=== PATIENT | male | born 1955 | race Two or more races ===

== ENCOUNTER 2024-06-14 20:29 | Inpatient (IN) | payer OTHER ==
[~2024-06-14] VITALS: Ht 170.2 cm; Wt 112.3 kg
--- NOTE | 2024-06-14 21:00 | ED.PDOC ---
History of Present Illness HPI Comments 68-year-old male complains of cough for the last 4 days and then started feeling some tightness in his chest and shortness of breath for the last 8 hours or so after he bought a new trailer today. Chief Complaint: Chest Pain Time Seen by MD: 20:35 Allergies: Coded Allergies: NO KNOWN ALLERGIES (Unverified , 06/14/24) Information Source: Patient, Relative Severity: Moderate Timing: Days Past Medical History PAST MEDICAL HISTORY: Asthma, COPD, GERD, HTN Past Medical History (Other): BPH, obesity Surgical History: Denies all surgeries Surgical History (Other): bilateral knee surgeries Family History Family History: Unknown Social History Smoker: Non-Smoker Alcohol: Denies ETOH Use Drugs: Denies Drug Use Lives In: Home Constitutional: reports: fatigue, malaise Respiratory: reports: cough, SOB at rest, SOB with excertion, wheezing Cardiovascular: reports: chest pain All Other Systems: Reviewed and Negative Physical Exam General Appearance: Moderate Distress HEENT: Normal ENT Inspection, Pharynx Normal, TMs Normal Neck: Full Range of Motion, Non-Tender, Normal, Normal Inspection Respiratory: No Accessory Muscle Use, Respiratory Distress, Wheezing Cardiovascular: No Edema, No JVD, No Murmur, No Gallop, Normal Peripheral Pulses, Regular Rate/Rhythm Breast Exam: Deferred Gastrointestinal: No Organomegaly, Non Tender, No Pulsatile Mass, Normal Bowel Sounds, Soft Genitalia: Deferred Pelvic: Deferred Rectal: Deferred Extremities: No calf tenderness, Normal capillary refill, Normal inspection, Normal range of motion, Non-tender, No pedal edema Musculoskeletal : Apperance: Normal Neurologic: Alert, retail pharmacy manager II-XII nml as Tested, No Motor Deficits, Normal Affect, Normal Mood, No Sensory Deficits Cerebellar Function: Normal Reflexes: Normal Skin: Dry, Normal Color, Warm Lymphatic: No Adenopathy Was a procedure done? Was a procedure done?: No EKG EKG #1: Pulse Rate (adult): 98 [place]: Normal Cardiac Rhythm: NSR Block: None Hypertrophy: None ST: Normal EKG #2: Pulse Rate (adult): 93 [place]: Normal Cardiac Rhythm: NSR Block: None Hypertrophy: None ST: Normal Differential Dx Considerations may include: Differential diagnosis includes but is not limited to: asthma, pneumonia, c ongestive heart failure, pleural effusion, empyema, pulmonary embolus, and others X-Ray, Labs, Meds, VS Vital Signs Date Time Temp Pulse Resp B/P (MAP) Pulse Ox O2 Delivery O2 Flow Rate FiO2 06/14/24 21:58 93 06/14/24 21:29 93 06/14/24 21:05 18 94 Nasal Cannula* 6 44 06/14/24 20:34 98 06/14/24 20:30 98.8 105 24 158/98 (118) 91 Lab Test 06/14/24 21:37 06/14/24 21:06 06/14/24 20:45 Range/Units Lactic Acid Level 1.4 0.4-2.0 mmol/L Troponin I High Sensitivity < 3 L < 3 L </=54 ng/L Blood Gas Specimen Type Venous Blood Gas Sample Site Vbg - n/a Blood Gas Patient Temperature 37.0 Arterial Blood Date Drawn [id number] Cam Test N/a Venous Blood pH 7.343 7.320-7.430 Venous Blood pCO2 at Patient Temp 58.6 *H 38.0-54.0 mmHg Venous Blood pO2 at Patient Temp 65.5 H 23.0-48.0 mmHg Venous Blood HCO3 31.1 H 22.0-29.0 mmol/L Venous Blood Base Excess 3.7 H -2.0-3.0 mmol/L Blood Gas Liter Flow 6.00 Blood Gas Modality Nasal cannula Blood Gas Spontaneous Rate 18 FiO2 % 44.0 Blood Gas Critical Value Read Back Yes Blood Gas Notified Whom Dr. nico kimble Blood Gas Notified Time [id number] Blood Gas Notified By William alston director of safety and security White Blood Count 9.7 4.4-10.8 10^3/uL Red Blood Count 7.79 H 4.5-5.90 10^6/uL Hemoglobin 18.7 H 13.5-17.5 g/dL Hematocrit 60.1 H 41.0-53.0 % Mean Corpuscular Volume 77.1 L 80.0-100.0 fL Mean Corpuscular Hemoglobin 24.0 L 28.0-32.0 pg Mean Corpuscular Hemoglobin Concent 31.1 L 32.0-36.0 g/dL Red Cell Distribution Width 21.9 H 11.8-14.3 % Platelet Count 205 140-450 10^3/uL Mean Platelet Volume 7.9 6.9-10.8 fL Neutrophils (%) (Auto) 67.4 37.0-80.0 % Lymphocytes (%) (Auto) 20.1 10.0-50.0 % Monocytes (%) (Auto) 11.0 0.0-12.0 % Eosinophils (%) (Auto) 1.1 0.0-7.0 % Basophils (%) (Auto) 0.4 0.0-2.0 % Neutrophils # (Auto) 6.6 1.6-8.6 10 ^3/uL Lymphocytes # (Auto) 2.0 0.4-5.4 10 ^3/uL Monocytes # (Auto) 1.1 0-1.3 10 ^3/uL Eosinophils # (Auto) 0.1 0-0.8 10 ^3/uL Basophils # (Auto) 0 0-0.2 10 ^3/uL Nucleated Red Blood Cells 2.5 % Prothrombin Time 11.8 9.3-11.8 sec Prothrombin Time INR 1.13 0.9-1.15 Activated Partial Thromboplast Time 29.4 24.5-34.5 SEC Sodium Level 138 136-145 mmol/L Potassium Level 3.9 3.5-5.1 mmol/L Chloride Level 100 98-107 mmol/L Carbon Dioxide Level 29 20-31 mmol/L Anion Gap 9 5-15 Blood Urea Nitrogen 15 9-23 mg/dL Creatinine 0.89 0.700-1.30 mg/dL Glomerular Filtration Rate Calc 93 >90 mL/min BUN/Creatinine Ratio 16.9 10.0-20.0 Serum Glucose 141 H 74-106 mg/dL Calcium Level 9.6 8.7-10.4 mg/dL Total Bilirubin 0.9 0.2-1.0 mg/dL Aspartate Amino Transferase (AST) 23 13-40 U/L Alanine Aminotransferase (ALT) 25 7-40 U/L Alkaline Phosphatase 46 46-116 U/L Total Protein 7.2 5.7-8.2 g/dL Albumin 4.6 3.2-4.8 g/dL Influenza Type A Antigen Negative Negative Influenza Type B Antigen Negative Negative SARS-CoV-2 Antigen (Rapid) Negative NEGATIVE Current Medications Medications (Trade) Dose Ordered Sig/Ting Route Start Time Stop Time Status Last Admin Albuterol (Ventolin Medneb) 5 mg ONCE ONCE NEB 2/24/25 20:45 06/14/24 20:46 DC 06/14/24 21:05 Ipratropium Juda (Atrovent Medneb) 0.5 mg ONCE ONCE NEB 06/14/24 20:45 06/14/24 20:46 DC 06/14/24 21:05 Time of 1ST Reevaluation: 21:00 Reevaluation 1ST: Unchanged Time of 2ND Reevaluation: 23:00 Reevaluation 2ND: Unchanged Patient Education/Counseling: Diagnosis, Treatment Family Education/Counseling: Diagnosis, Treatment Departure 1 Departure Time of Disposition: 23:01 Impression: Primary Impression: Respiratory failure with hypoxia and hypercapnia Additional Impressions: COPD with acute exacerbation CHF (congestive heart failure) Intermediate coronary syndrome Disposition: ADMITTED INPATIENT Admit to: [facility] Condition: Guarded Discharged With: Self Comments Chest Pain and Shortness of Breath Chief Complaint: Chest tightness and shortness of breath History of Present Illness: 68-year-old male with known history of CHF and COPD presented to the ED with chest tightness and shortness of breath that began today around noon. Patient was found to be hypoxic with oxygen saturation of 89% on room air, requiring supplemental oxygen via nasal cannula for stabilization. Initial workup revealed evidence of pulmonary edema on chest imaging, with preserved cardiac enzymes but evidence of respiratory failure with hypercapnia on venous blood gas. Review of Systems: Respiratory: Positive for shortness of breath and chest tightness Constitutional: No fever All other systems: Deferred or negative Medications: Current outpatient medications not fully detailed in store lead ED medications administered: - Aspirin - Furosemide (Lasix) - Bronchodilator nebulizer treatment - Prednisone Allergies: No known allergies documented Past Medical History: 1. Chronic Heart Failure (CHF) 2. Chronic Obstructive Pulmonary Disease (COPD) Lab Results: 1. Troponin: Normal (< 0.03) 2. Lactate: 1.4 (normal) 3. Venous Blood Gas: PCO2 58.6 (elevated) 4. COVID-19 test: Negative 5. Influenza test: Negative Imaging and Other Relevant Results: Chest X-ray: Findings consistent with CHF and pulmonary edema Medical Decision Making: Summary Statement: 68-year-old male with history of CHF and COPD presenting with acute respiratory symptoms and found to have respiratory failure with both hypoxia and hypercapnia, along with evidence of CHF exacerbation. Problem List: 1. Acute respiratory failure with hypoxia and hypercapnia 2. COPD exacerbation 3. CHF exacerbation 4. Intermediate coronary syndrome Differential Diagnosis: 1. Acute CHF exacerbation 2. COPD exacerbation 3. Acute coronary syndrome 4. Pneumonia 5. COVID-19 (ruled out) 6. Influenza (ruled out) ED Course: Patient received acute interventions including supplemental oxygen, diuresis with Lasix, bronchodilator therapy, and steroids with partial improvement. After shared decision-making discussion with patient and family, admission was arranged. Assessment and Plan: 1. Acute Respiratory Failure with Hypoxia and Hypercapnia: - Admit to hospital for continued management - Continue supplemental oxygen therapy - Serial blood gas monitoring 2. COPD Exacerbation: - Continue bronchodilator treatments - Continue systemic steroids - Optimize respiratory medications 3. CHF Exacerbation: - Continue diuresis with Lasix - Monitor fluid status - Daily weights 4. Intermediate Coronary Syndrome: - Initiated aspirin - Cardiac monitoring - Serial troponins Billing Information: ICD-10: J96.21 - Acute respiratory failure with hypoxia ICD-10: J44.1 - COPD with acute exacerbation ICD-10: I50.9 - Heart failure, unspecified ICD-10: I20.0 - Unstable angina Critical Care Note Critical Care Time?: Yes (35 min-critical care time only) Critical care comment: Total critical care time: Approximately 36 minutes Due to a high probability of clinically significant, life threatening deterioration, the patient required my highest level of preparedness to intervene emergently and I personally spent this critical care time directly and personally managing the patient. This critical care time included obtaining a history; examining the patient; pulse oximetry; ordering and review of studies; arranging urgent treatment with development of a management plan; evaluation of patient's response to treatment; frequent reassessment; and, discussions with other providers. This critical care time was performed to assess and manage the high probability of imminent, life-threatening deterioration that could result in multi-organ failure. It was exclusive of separately billable procedures and treating other patients. Stability Stability form required: No Heart Score Heart Score: Heart Score Response (Comments) Value History Moderate Suspicious 1 EKG Normal 0 Age >65 2 Risk Factors >3 or Hx ASHD 2 Troponin Normal limit 0 Total 5 I personally scribed for PATTI KIMBLE MD ([email or web address]) on 06/14/24 at 21:58. Electronically submitted by Nick Jimenez ([email or web address]). PATTI KIMBLE MD Jun 14, 2024 21:00
[2024-06-14] MEDS: ALBUTEROL SULF 2.5 MG/0.5ML(0.5%) NEB SOLN NEB ONE (21:05)
[2024-06-14] MEDS: IPRATROPIUM BROM 0.5 MG/2.5ML INH SOL NEB ONE (21:05)
[2024-06-14 21:08] LABS: Eosinophils # (auto) 0.1 10 ^3/uL (0-0.8); Hemoglobin 18.7 g/dL (13.5-17.5); Monocytes # (auto) 1.1 10 ^3/uL (0-1.3)
[2024-06-14 21:12] LABS: Basophils # (auto) 0 10 ^3/uL (0-0.2); Basophils % (auto) 0.4 % (0.0-2.0); Eosinophils % (auto) 1.1 % (0.0-7.0); Lymphocytes % (auto) 20.1 % (10.0-50.0); Mean Corpuscular Hgb Conc. 31.1 g/dL (32.0-36.0); Mean Corpuscular Volume 77.1 fL (80.0-100.0); Neutrophils # (auto) 6.6 10 ^3/uL (1.6-8.6); Neutrophils % (auto) 67.4 % (37.0-80.0); Nucleated Red Blood Cells % 2.5 %; Platelet Count (auto) 205 10^3/uL (140-450); Red Blood Cells 7.79 10^6/uL (4.5-5.90); White Blood Cell 9.7 10^3/uL (4.4-10.8)
[2024-06-14 21:13] LABS: Hematocrit 60.1 % (41.0-53.0); Red Cell Distribution Width 21.9 % (11.8-14.3)
[2024-06-14 21:21] LABS: Rapid Influenza A Negative (Negative); Rapid Influenza B Negative (Negative)
[2024-06-14 21:22] LABS: COVID19 ANTIGEN SOFIA FIA NEGATIVE (NEGATIVE)
[2024-06-14 21:23] LABS: Alanine Aminotransferase 25 U/L (7-40); Albumin 4.6 g/dL (3.2-4.8); Alkaline Phosphatase 46 U/L (46-116); Anion Gap 9 (5-15); Aspartate Aminotransferase 23 U/L (13-40); BUN/Creatinine Ratio 16.9 (10.0-20.0); Bilirubin, Total 0.9 mg/dL (0.2-1.0); Blood Urea Nitrogen 15 mg/dL (9-23); Calcium 9.6 mg/dL (8.7-10.4); Carbon Dioxide 29 mmol/L (20-31); Chloride 100 mmol/L (98-107); Potassium 3.9 mmol/L (3.5-5.1); Sodium 138 mmol/L (136-145); Total Protein 7.2 g/dL (5.7-8.2)
[2024-06-14 21:24] LABS: Glucose 141 mg/dL (74-106)
[2024-06-14 21:30] LABS: INR 1.13 (0.9-1.15); Partial Thromboplastin Time 29.4 SEC (24.5-34.5); Prothrombin Time 11.8 sec (9.3-11.8)
--- NOTE | 2024-06-14 21:43 | DVH ---
CHEST RADIOGRAPH Indication: chest pain Technique: Single frontal view of the chest was obtained COMPARISON: None FINDINGS: Lines and Tubes: None Lungs: Mild interstitial pulmonary edema. Pleura: No effusion. No pneumothorax. Cardiomediastinal contours: Cardiomegaly Bones: Unremarkable IMPRESSION: 1. Mild interstitial pulmonary edema in the setting of cardiomegaly.
[2024-06-14] MEDS: ASPirin-EC 81 mg tab PO ONE (23:00)
[2024-06-15] VITALS (9 sets, daily range): BP systolic 101–126; BP diastolic 66–87; PULSE 84–106; RESP 18–92; TEMP 97.6–98.8; O2SAT 92–96
[2024-06-15] MEDS: predniSONE 20 MG TAB PO ONE (00:21)
[2024-06-15] MEDS: FUROSEMIDE 40 MG/4 ML VIAL IV ONE ×2 (00:32→10:30)
[2024-06-15] MEDS ORDERED: ONDANSETRON HCL 4 MG/2 ML VIAL IV PRN (01:00)
[2024-06-15] MEDS ORDERED: ACETAMINOPHEN 325 MG TAB PO PRN (01:00)
[2024-06-15] MEDS ORDERED: MORPHINE SULFATE INJ 2 MG/ml SYRG IV PRN (01:00)
[2024-06-15] MEDS ORDERED: NITROGLYCERIN 0.4 MG SL TAB SL PRN (01:00)
--- NOTE | 2024-06-15 04:03 | DVHHP2 ---
History of Present Illness Reason for Visit: Shortness for breath History of Present Illness 68-year-old male presents for evaluation of shortness for breath. Patient presents with a four day history of shortness for breath. He describes having left-sided chest pressure that is nonradiating with associated shortness for breath. He reports orthopnea. He also associates mild abdominal distention. Past Medical History Hypertension and BPH Past Surgical History Bilateral knee surgery Family History Noncontributory Smoke: No ALCOHOL: none Drugs: None Lives: with Family Review of Systems Review of Systems Review of systems are currently negative otherwise addressed in HPI. Allergies: Coded Allergies: NO KNOWN ALLERGIES (Unverified , 06/14/24) Medications Current Medications Medications Dose Ordered Sig/Ting Route Start Time Stop Time Status Last Admin Dose Admin Albuterol 2.5 mg Q6HPRN PRN NEB 06/15/24 01:00 Furosemide 20 mg BIDD IV 06/15/24 06:00 Aspirin 81 mg DAILY PO 06/15/24 10:00 Lisinopril 10 mg DAILY PO 06/15/24 10:00 Ondansetron HCl 4 mg Q4HP PRN IV 06/15/24 01:00 Enoxaparin Sodium 40 mg DAILY SC 06/15/24 10:00 Acetaminophen 650 mg Q6HP PRN PO 06/15/24 01:00 Nitroglycerin 0.4 mg Q5MINP PRN SL 06/15/24 01:00 Morphine Sulfate 2 mg Q30M PRN IV 06/15/24 01:00 Atorvastatin Calcium 10 mg HS PO 06/15/24 22:00 Exam Vital Signs Vital Signs Date Time Temp Pulse Resp B/P (MAP) Pulse Ox O2 Delivery O2 Flow Rate FiO2 06/15/24 02:00 94 20 134/86 (102) 90 06/15/24 01:20 98.0 6.0 44 98.0 06/15/24 00:05 Nasal Cannula* Exam Gen: 68-year-old male in mild distress, obese Skin: Warm, dry, normal color and texture, no rash. HEENT: Normocephalic atraumatic, mucous membranes moist and pink. Neck: Cervical and supraclavicular nodes normal without enlargement, trachea is midline, thyroid gland is normal without masses. Pulmonary: Clear to auscultation and percussion bilaterally. Cardiac: Regular rate and rhythm. No murmur Abdomen: Soft, nontender, nondistended, bowel sounds present all 4 quadrants, no guarding, no rigidity, no organomegaly. Extremities: No cyanosis, clubbing, no edema Neuro: Cranial nerves II through XII grossly intact, normal affect and speech, no focal motor deficits. Labs/Xrays ORDERING PHYSICIAN: PATTI KIMBLE MD PROCEDURE(s): CXRP - CHEST PORTABLE REASON: chest pain ORDER NUMBER(s): [id number], ACCESSION NUMBER(s): [id number] CHEST RADIOGRAPH Indication: chest pain Technique: Single frontal view of the chest was obtained COMPARISON: None FINDINGS: Lines and Tubes: None Lungs: Mild interstitial pulmonary edema. Pleura: No effusion. No pneumothorax. Cardiomediastinal contours: Cardiomegaly Bones: Unremarkable IMPRESSION: 1. Mild interstitial pulmonary edema in the setting of cardiomegaly. Labs Test 06/15/24 01:11 06/14/24 21:37 06/14/24 21:06 06/14/24 20:45 Range/Units D-Dimer, Quantitative 0.52 H 0.0-0.49 mg/L FEU Lactic Acid Level 1.4 0.4-2.0 mmol/L Troponin I High Sensitivity < 3 L </=54 ng/L Blood Gas Specimen Type Venous Blood Gas Sample Site Vbg - n/a Blood Gas Patient Temperature 37.0 Arterial Blood Date Drawn [id number] Cam Test N/a Venous Blood pH 7.343 7.320-7.430 Venous Blood pCO2 at Patient Temp 58.6 *H 38.0-54.0 mmHg Venous Blood pO2 at Patient Temp 65.5 H 23.0-48.0 mmHg Venous Blood HCO3 31.1 H 22.0-29.0 mmol/L Venous Blood Base Excess 3.7 H -2.0-3.0 mmol/L Blood Gas Liter Flow 6.00 Blood Gas Modality Nasal cannula Blood Gas Spontaneous Rate 18 FiO2 % 44.0 Blood Gas Critical Value Read Back Yes Blood Gas Notified Whom Dr. nico kimble Blood Gas Notified Time [id number] Blood Gas Notified By William alston [facility] White Blood Count 9.7 4.4-10.8 10^3/uL Red Blood Count 7.79 H 4.5-5.90 10^6/uL Hemoglobin 18.7 H 13.5-17.5 g/dL Hematocrit 60.1 H 41.0-53.0 % Mean Corpuscular Volume 77.1 L 80.0-100.0 fL Mean Corpuscular Hemoglobin 24.0 L 28.0-32.0 pg Mean Corpuscular Hemoglobin Concent 31.1 L 32.0-36.0 g/dL Red Cell Distribution Width 21.9 H 11.8-14.3 % Platelet Count 205 140-450 10^3/uL Mean Platelet Volume 7.9 6.9-10.8 fL Neutrophils (%) (Auto) 67.4 37.0-80.0 % Lymphocytes (%) (Auto) 20.1 10.0-50.0 % Monocytes (%) (Auto) 11.0 0.0-12.0 % Eosinophils (%) (Auto) 1.1 0.0-7.0 % Basophils (%) (Auto) 0.4 0.0-2.0 % Neutrophils # (Auto) 6.6 1.6-8.6 10 ^3/uL Lymphocytes # (Auto) 2.0 0.4-5.4 10 ^3/uL Monocytes # (Auto) 1.1 0-1.3 10 ^3/uL Eosinophils # (Auto) 0.1 0-0.8 10 ^3/uL Basophils # (Auto) 0 0-0.2 10 ^3/uL Nucleated Red Blood Cells 2.5 % Prothrombin Time 11.8 9.3-11.8 sec Prothrombin Time INR 1.13 0.9-1.15 Activated Partial Thromboplast Time 29.4 24.5-34.5 SEC Sodium Level 138 136-145 mmol/L Potassium Level 3.9 3.5-5.1 mmol/L Chloride Level 100 98-107 mmol/L Carbon Dioxide Level 29 20-31 mmol/L Anion Gap 9 5-15 Blood Urea Nitrogen 15 9-23 mg/dL Creatinine 0.89 0.700-1.30 mg/dL Glomerular Filtration Rate Calc 93 >90 mL/min BUN/Creatinine Ratio 16.9 10.0-20.0 Serum Glucose 141 H 74-106 mg/dL Calcium Level 9.6 8.7-10.4 mg/dL Total Bilirubin 0.9 0.2-1.0 mg/dL Aspartate Amino Transferase (AST) 23 13-40 U/L Alanine Aminotransferase (ALT) 25 7-40 U/L Alkaline Phosphatase 46 46-116 U/L B-Type Natriuretic Peptide 54.63 0-100 pg/mL Total Protein 7.2 5.7-8.2 g/dL Albumin 4.6 3.2-4.8 g/dL Influenza Type A Antigen Negative Negative Influenza Type B Antigen Negative Negative SARS-CoV-2 Antigen (Rapid) Negative NEGATIVE Assessment/Plan Assessment/Plan Assessment Acute respiratory distress Possible acute diastolic congestive heart failure Hypertension Plan Admit the patient to telemetry to the hospitalist Cardiology consultation Resume home medications Continue treatment per orders. Plan discussed with: Patient My Orders Orders - JAIME LEVI Procedure Category Date Status Time Albuterol Medneb PHA 06/15/24 In Process (Ventolin Medneb) 01:00 Furosemide Injection PHA 06/15/24 In Process (Lasix Injection) 06:00 Aspirin Tablet PHA 06/15/24 In Process 10:00 * Cardiology Consult CONS 06/15/24 Transmitted 00:53 Lisinopril Tablet PHA 06/15/24 In Process (Zestril Tablet) 10:00 Basic Metabolic Panel LAB 06/16/24 Verified 04:00 Admit ADMIT 06/15/24 Transmitted 00:53 Ondansetron Hcl PHA 06/15/24 In Process (Zofran) 01:00 Enoxaparin Sodium PHA 06/15/24 In Process (Lovenox) 10:00 Complete Blood Count LAB 06/16/24 Verified 04:00 Cardiac DIET 06/15/24 Transmitted Diet-2gna,Lofat,Lochol Breakfast Echo 2d Mode Cardiac US 06/15/24 Logged DOP 00:53 Condition: Stable CARISSA 06/15/24 In Process 00:53 Acetaminophen Tablet PHA 06/15/24 In Process (Tylenol Tablet) 01:00 Bedrest With Bathroom CARISSA 06/15/24 In Process Privileg 00:53 Nitroglycerin PHA 06/15/24 In Process Sublingual (Ntrostat 01:00 Morphine Sulfate PHA 06/15/24 In Process Injection 01:00 Stat Ekg For Chest CARISSA 06/15/24 In Process Pain 00:53 Notify Of Changes CARISSA 06/15/24 In Process From Base 00:53 [employer] Teacher For [facility] 06/15/24 In Process 24 Hours 00:53 Emergency Dysrhythmia [facility] 06/15/24 In Process Protocol 00:53 Rhythm Strips Once [facility] 06/15/24 In Process Every Shift 00:53 Oxygen By Nasal RT 06/15/24 Transmitted Cannula 00:53 Atorvastatin (Lipitor) PHA 06/15/24 In Process 22:00 Lipid Panel LAB 06/15/24 Verified 03:57 Thyroid Stimulating LAB 06/15/24 Verified Hormone 03:57 Hemoglobin A1c LAB 06/15/24 Verified 03:57 Date of Service: Jun 15, 2024 Billing Provider: JAIME LEVI Common Visit Codes: [id number] INP/OBS CARE (HIGH) JAIME LEVI Jun 15, 2024 04:03
[2024-06-15 05:55] LABS: LDL Cholesterol 60 mg/dL (< 100)
[2024-06-15 05:56] LABS: % Iron Saturation 8.2 % (20-55); Cholesterol 111 mg/dL (< 200)
--- NOTE | 2024-06-15 06:44 | ECG ---
[facility] Test Date: 2024-06-14 Test Time: 21:29:03 Pat Name: MICHELLE RICHARDSON Department: ED Room: 0297T Gender: M Geophysical E Logger: [place] : 1955 Requested By: PATTI KIMBLE Order Number: [id number] Reading MD: Ruben Ferrera Measurements Intervals [place] Rate: 93 P: 48 RI: 159 QRS: 254 QRSD: 83 T: 35 QT: 334 QTc: 416 Interpretive Statements Sinus rhythm Anterolateral infarct, old Baseline wander in lead(s) II,V2 Electronically Signed On 06-19-2024 17:24:48 PST by Ruben Ferrera Please click the below link to view image of tracing.
[2024-06-15 06:47] LABS: HDL Cholesterol 32 mg/dL (40-59); Triglycerides 110 mg/dL (< 150)
[2024-06-15] MEDS: FUROSEMIDE 20 MG/2 ML VIAL IV SCH (07:03)
--- NOTE | 2024-06-15 09:15 | ECG ---
[facility] [place] Test Date: 2024-06-14 Test Time: 20:34:05 Pat Name: MICHELLE RICHARDSON Department: ed Room: 0297T Gender: M Pad Machine Feeder: nanda : 1955 Requested By: PATTI KIMBLE Order Number: [id number] Reading MD: Ruben Ferrera Measurements Intervals [place] Rate: 98 P: 45 HI: 155 QRS: 256 QRSD: 90 T: 27 QT: 330 QTc: 422 Interpretive Statements Sinus rhythm Anterolateral infarct, old Baseline wander in lead(s) II,III,aVL,aVF,V2,V3,V4,V6 Electronically Signed On 06-19-2024 17:23:13 PST by Ruben Ferrera Please click the below link to view image of tracing.
[2024-06-15 09:16] LABS: Basophils # (auto) 0 10 ^3/uL (0-0.2); Basophils % (auto) 0.3 % (0.0-2.0); Eosinophils # (auto) 0 10 ^3/uL (0-0.8); Eosinophils % (auto) 0.2 % (0.0-7.0); Lymphocytes # (auto) 0.6 10 ^3/uL (0.4-5.4); Lymphocytes % (auto) 7.5 % (10.0-50.0); Mean Corpuscular Hemoglobin 23.1 pg (28.0-32.0); Mean Corpuscular Hgb Conc. 29.7 g/dL (32.0-36.0); Mean Corpuscular Volume 77.8 fL (80.0-100.0); Monocytes # (auto) 0.2 10 ^3/uL (0-1.3); Monocytes % (auto) 2.3 % (0.0-12.0); Neutrophils % (auto) 89.7 % (37.0-80.0); Nucleated Red Blood Cells % 2.3 %; Platelet Count (auto) 224 10^3/uL (140-450); White Blood Cell 7.8 10^3/uL (4.4-10.8)
[2024-06-15 09:20] LABS: Hematocrit 63.8 % (41.0-53.0); Red Cell Distribution Width 22.2 % (11.8-14.3)
[2024-06-15] MEDS: ENOXAPARIN SOD 40 MG/0.4 ML SYRINGE SC SCH (10:22)
[2024-06-15] MEDS: ASPirin 81 mg TAB PO SCH (10:22)
[2024-06-15] MEDS: LISINOPRIL 5 MG TAB PO SCH (10:22)
[2024-06-15] MEDS ORDERED: IOHEXOL 300 MG/ML 100ML BOTTLE IJ ONE (10:35)
[2024-06-15] MEDS ORDERED: IOHEXOL 350 MG/ML 100ML IJ ONE (10:39)
--- NOTE | 2024-06-15 10:47 | DVHCONRES ---
Date Seen: Jun 15, 2024 Resident Creating Document: BENNIE HUGEHS RESIDENT Referring Physician OUMAR Butler Reason for Consultation CHF History of Present Illness This is a 68-year-old male who comes into the ED with chief complain of shortness of breath. He has a past medical history relevant for hypertension and BPH. Past surgical history relevant for bilateral knee surgery. Social history: Denies smoking, alcohol or drug abuse. Home medications: Patient stated that he does not remember some of his medications but stated he takes aspirin, and has been injecting testosterone every month for the last eight months. Patient stated that for the last four days he has been having worsening shortness of breath, he stated that it was associated with chest pain, midsternal, pressure-like, moderate, waxing and waning, release by standing up and walking, worsened by lying flat. He stated that the chest pain is nonradiating, and states having orthopnea. She currently denies any dizziness, lightheadedness, nausea, vomiting, abdominal pain. On arrival to the ED, patient's heart rate was 105, he was tachypneic at 24, blood pressure was elevated at 150 8/98, he was saturating at 91%, he was placed on nasal cannula 6 L. Blood work revealed erythrocytosis, normal troponins, BNP 54, TSH within normal limits, hemoglobin A1c 5.9%, COVID and flu were negative. Chest x-ray show [id number] vascular congestion EKG revealed a rate of 93, sinus rhythm, extreme axis, no ST changes, Q-waves on anterolateral aspect On my assessment, patient states feeling better than on admission, he currently denied any significant shortness of breath or chest pain. He remained on oxygen requirement. Family History: Patient reports no known family medical history. Allergies: Coded Allergies: NO KNOWN ALLERGIES (Unverified , 06/14/24) Home Meds Unable to Obtain Active Prescriptions or Reported Meds Current Medications Current Medications Medications (Trade) Dose Ordered Sig/Ting Route PRN Reason Start Time Stop Time Status Last Admin Albuterol (Ventolin Medneb) 2.5 mg Q6HPRN PRN NEB SHORTNESS OF BREATH 06/15/24 01:00 Furosemide (Lasix Injection) 20 mg BIDD IV 06/15/24 06:00 06/15/24 07:03 Aspirin 81 mg DAILY PO 06/15/24 10:00 06/15/24 10:22 Lisinopril (Zestril Tablet) 10 mg DAILY PO 06/15/24 10:00 06/15/24 10:22 Ondansetron HCl (Zofran) 4 mg Q4HP PRN IV NAUSEA / VOMITING 06/15/24 01:00 Enoxaparin Sodium (Lovenox) 40 mg DAILY SC 06/15/24 10:00 06/15/24 10:22 Acetaminophen (Tylenol Tablet) 650 mg Q6HP PRN PO PAIN SCALE 1-3 OR TEMP>100.4 06/15/24 01:00 Nitroglycerin (Ntrostat Sublingual) 0.4 mg Q5MINP PRN SL FOR CHEST PAIN 06/15/24 01:00 Morphine Sulfate 2 mg Q30M PRN IV FOR CHEST PAIN 06/15/24 01:00 Atorvastatin Calcium (Lipitor) 10 mg HS PO 06/15/24 22:00 Review of Systems Constitutional: Patient denies fevers, chills, sweats and weight changes. Eyes: Patient denies any visual symptoms. Ears, Nose, and Throat: No difficulties with hearing. No symptoms of rhinitis or sore throat. Cardiovascular: Chest pain, orthopnea Respiratory: Shortness of breath, dry cough GI: No nausea, vomiting, diarrhea, constipation, abdominal pain, hematochezia or melena. : No urinary hesitancy or dribbling. No nocturia or urinary frequency. No abnormal urethral discharge. Musculoskeletal: No myalgias, arthralgias or edema. Neurologic: No chronic headaches, no seizures. Patient denies numbness, tingling or weakness. Psychiatric: Patient denies problems with mood disturbance. No problems with anxiety. Endocrine: No excessive urination or excessive thirst. Dermatologic: Patient denies any rashes or skin changes. Vital Signs Vital Signs Date Time Temp Pulse Resp B/P (MAP) Pulse Ox O2 Delivery O2 Flow Rate FiO2 06/15/24 10:22 117/77 06/15/24 04:56 84 17 9 06/15/24 01:20 98.0 6.0 44 98.0 06/15/24 00:05 Nasal Cannula* Physical Exam General: Awake, alert, comfortable appearing, in no acute distress. HEENT: Head is normocephalic and atraumatic. Pupils are equal, round, and reactive to light. Extraocular muscles are intact. No nasal discharge. No facial trauma. Intraoral exam shows moist mucous membranes with no tonsillar enlargement or exudate. Neck: Supple with no cervical lymphadenopathy No meningismus. No goiter. Heart: Regular rate without murmur, rub, or gallop. Lungs: Ckad-xi-mlzaxfnd bilateral diffuse crackles Abdomen: No external sign of injury. Bowel sounds are present. Abdomen is soft, nontender. No rebound, no guarding, no rigidity. There are no palpable masses. There is no flank pain on exam. Extremities: Strong peripheral pulses. There is no clubbing, no cyanosis, and no edema. Skin: No rash. Neurologic: Cranial nerves II-XII intact without motor, sensory, or cerebellar deficit, no asterixis. Labs/Diagnostic Data Labs Test 06/15/24 04:28 06/15/24 01:11 06/14/24 21:37 06/14/24 21:06 Range/Units White Blood Count 7.8 4.4-10.8 10^3/uL Red Blood Count 8.20 H 4.5-5.90 10^6/uL Hemoglobin 19.0 H 13.5-17.5 g/dL Hematocrit 63.8 H 41.0-53.0 % Mean Corpuscular Volume 77.8 L 80.0-100.0 fL Mean Corpuscular Hemoglobin 23.1 L 28.0-32.0 pg Mean Corpuscular Hemoglobin Concent 29.7 L 32.0-36.0 g/dL Red Cell Distribution Width 22.2 H 11.8-14.3 % Platelet Count 224 140-450 10^3/uL Mean Platelet Volume 8.6 6.9-10.8 fL Neutrophils (%) (Auto) 89.7 H 37.0-80.0 % Lymphocytes (%) (Auto) 7.5 L 10.0-50.0 % Monocytes (%) (Auto) 2.3 0.0-12.0 % Eosinophils (%) (Auto) 0.2 0.0-7.0 % Basophils (%) (Auto) 0.3 0.0-2.0 % Neutrophils # (Auto) 7.0 1.6-8.6 10 ^3/uL Lymphocytes # (Auto) 0.6 0.4-5.4 10 ^3/uL Monocytes # (Auto) 0.2 0-1.3 10 ^3/uL Eosinophils # (Auto) 0 0-0.8 10 ^3/uL Basophils # (Auto) 0 0-0.2 10 ^3/uL Nucleated Red Blood Cells 2.3 % Hemoglobin A1c 5.9 H <5.7 % A1C Iron Level 32 L 65-175 ug/dL Total Iron Binding Capacity 391 250-425 ug/dL Percent Iron Saturation 8.2 L 20-55 % Triglycerides Level 110 < 150 mg/dL Cholesterol Level 111 < 200 mg/dL LDL Cholesterol 60 < 100 mg/dL HDL Cholesterol 32 L 40-59 mg/dL Thyroid Stimulating Hormone (TSH) 1.37 0.55-4.78 uIU/mL D-Dimer, Quantitative 0.52 H 0.0-0.49 mg/L FEU Lactic Acid Level 1.4 0.4-2.0 mmol/L Troponin I High Sensitivity < 3 L </=54 ng/L Blood Gas Specimen Type Venous Blood Gas Sample Site Vbg - n/a Blood Gas Patient Temperature 37.0 Arterial Blood Date Drawn [id number] Cam Test N/a Venous Blood pH 7.343 7.320-7.430 Venous Blood pCO2 at Patient Temp 58.6 *H 38.0-54.0 mmHg Venous Blood pO2 at Patient Temp 65.5 H 23.0-48.0 mmHg Venous Blood HCO3 31.1 H 22.0-29.0 mmol/L Venous Blood Base Excess 3.7 H -2.0-3.0 mmol/L Blood Gas Liter Flow 6.00 Blood Gas Modality Nasal cannula Blood Gas Spontaneous Rate 18 FiO2 % 44.0 Blood Gas Critical Value Read Back Yes Blood Gas Notified Whom Dr. nico perdue Blood Gas Notified Time [id number] Blood Gas Notified By [facility] Test 06/14/24 20:45 Range/Units Prothrombin Time 11.8 9.3-11.8 sec Prothrombin Time INR 1.13 0.9-1.15 Activated Partial Thromboplast Time 29.4 24.5-34.5 SEC Total Bilirubin 0.9 0.2-1.0 mg/dL Aspartate Amino Transferase (AST) 23 13-40 U/L Alanine Aminotransferase (ALT) 25 7-40 U/L Alkaline Phosphatase 46 46-116 U/L B-Type Natriuretic Peptide 54.63 0-100 pg/mL Total Protein 7.2 5.7-8.2 g/dL Albumin 4.6 3.2-4.8 g/dL Influenza Type A Antigen Negative Negative Influenza Type B Antigen Negative Negative SARS-CoV-2 Antigen (Rapid) Negative NEGATIVE Assessment Acute diastolic CHF, NYHA class 3 Pneumonia gram (+) vs gram (-) Acute hypoxic respiratory failure Hypertension BPH Secondary erythrocytosis likely testosterone induced Elevated D-dimer, rule out DVT and PE Mixed Dyslipidemia Prediabetes Obesity Plan/Recommendation Continue diuresing as tolerated Continue GDMT: Jardiance, SAMREEN inhibitor, hold beta-carline for now Maintain fluid restriction and strict I&Os Pending echocardiogram Maintain magnesium above 2 on potassium above [address] angio and lower extremity Doppler Continue chest pain protocol Continue telemetry Order CRP, ESR, PSA Antibiotics per primary team Counseled on stopping testosterone injection Case was discussed with Dr. Ferrera Plan discussed with: Patient BENNIE HUGHES RESIDENT Jun 15, 2024 10:47
--- NOTE | 2024-06-15 11:02 | DVH ---
BILATERAL LOWER EXTREMITY VENOUS DOPPLER CLINICAL HISTORY: elevated ddimer Technique: Duplex Doppler evaluation of the deep venous systems of both lower extremities from the co mmon femoral veins to the popliteal veins including color Doppler and spectral/pulsed waveform analys is was performed. COMPARISON: None FINDINGS: The right and left common femoral, superficial femoral, popliteal, posterior tibial veins and trifur cations appear patent with normal augmentation, phasicity, compressibility and color-flow. IMPRESSION: 1. There is no sonographic evidence for DVT in the lower extremities. HS:Y
[2024-06-15 11:25] LABS: Anion Gap 14 (5-15); Carbon Dioxide 25 mmol/L (20-31); Chloride 99 mmol/L (98-107); Potassium 4.9 mmol/L (3.5-5.1); Sodium 138 mmol/L (136-145)
[2024-06-15 11:26] LABS: Calcium 10.2 mg/dL (8.7-10.4)
--- NOTE | 2024-06-15 11:26 | DVH ---
CTA Chest with intravenous contrast INDICATION: elevated ddimer COMPARISON: None TECHNIQUE: Multidetector spiral CTA of the chest was performed of the chest with intravenous contrast . PULMONARY ANGIOGRAPHY PROTOCOL was utilized using a bolus-tracking technique centered on the main p ulmonary artery. Axial, coronal and sagittal multiplanar and MIP reformats were performed. CONTRAST: Type of contrast: Omni 350 Contrast injected: 100 ml Radiation dose : Chest: CTDI volume is 50 mGy. Dose-length product is 945 mGy*cm The dose indicators for CT are the volume computed Tomography (CT) dose Index (CTDIvol) and the dose Length product (DLP), and are measured in units of mGy and mGy-cm, respectively. These indicators are not patient dose, but values generated from the CT scanner acquisition factors. The report includes radiation exposure data for exposures received during this examination. Findings: Limited by motion. Pulmonary artery: No large central or large segmental pulmonary embolism. Lower neck: Normal thyroid. Lungs: Atelectasis/consolidation in the lung bases. Heart/Vascular Structures: Normal heart size. No pericardial effusion. Lymph Nodes: No adenopathy Pleura: No pleural effusion or significant pneumothorax. Musculoskeletal: No acute osseous abnormality. Soft tissues: Normal. Upper abdomen: Limited portions of the upper abdomen are unremarkable. IMPRESSION: 1. Limited by significant motion. No large central pulmonary embolus. 2. Atelectasis and consolidation in the lung bases. Superimposed infectious/ inflammatory process is not excluded. Clinical correlation and continued follow-up is recommended. HS:Y
[2024-06-15 11:27] LABS: Anisocytosis Slight; Hypochromia Moderate
[2024-06-15 11:28] LABS: Large Platelets FEW; Platelet Estimate Adequa
[2024-06-15 11:31] LABS: BUN/Creatinine Ratio 19.3 (10.0-20.0); Blood Urea Nitrogen 16 mg/dL (9-23); Magnesium 2.1 mg/dL (1.6-2.6)
[2024-06-15 11:36] LABS: Glucose 130 mg/dL (74-106)
[2024-06-15 12:07] LABS: Erythrocyte Sedimentation Rate 1 mm/hr (0-20)
[2024-06-15] MEDS ORDERED: AZITHROMYCIN 500MG/ 250ML 250 ML IV ONE (13:00)
--- NOTE | 2024-06-15 13:47 | DVHPN2 ---
Subjective 68-year-old male with a history of hypertension, BPH comes with chief complaint of 4 days of shortness of breaths and cough. He has been coughing up some dark sputum brown in color, He is currently on 10 L oxygen nasal cannula He is still having the cough and shortness of breaths Chest x-ray shows bilateral pulmonary edema or infiltrates at the bases No leg edema No history of CHF His BNP was normal Changes from previous H/P or p: Changes Objective Vitals Vital Signs Date Time Temp Pulse Resp B/P (MAP) Pulse Ox O2 Delivery O2 Flow Rate FiO2 06/15/24 10:22 117/77 06/15/24 09:00 98.3 102 18 94 98.3 06/15/24 01:20 6.0 44 06/15/24 00:05 Nasal Cannula* General Appearance: Alert, Oriented X3, Cooperative, moderate distress Lungs: Clear to auscultation, Normal air movement Cardiovascular: Regular rate, Normal S1, Normal S2 Abdomen: Normal bowel sounds, Soft, No tenderness Extremities: Other (Trace edema bilaterally) Medications Current Medications Medications Dose Ordered Sig/Ting Route Start Time Stop Time Status Last Admin Dose Admin Albuterol 2.5 mg Q6HPRN PRN NEB 06/15/24 01:00 Furosemide 20 mg BIDD IV 06/15/24 06:00 06/15/24 07:03 20 MG Aspirin 81 mg DAILY PO 06/15/24 10:00 06/15/24 10:22 81 MG Lisinopril 10 mg DAILY PO 06/15/24 10:00 06/15/24 10:22 10 MG Ondansetron HCl 4 mg Q4HP PRN IV 06/15/24 01:00 Enoxaparin Sodium 40 mg DAILY SC 06/15/24 10:00 06/15/24 10:22 40 MG Acetaminophen 650 mg Q6HP PRN PO 06/15/24 01:00 Nitroglycerin 0.4 mg Q5MINP PRN SL 06/15/24 01:00 Morphine Sulfate 2 mg Q30M PRN IV 06/15/24 01:00 Atorvastatin Calcium 10 mg HS PO 06/15/24 22:00 Empaglifozin 10 mg DAILY PO 06/16/24 10:00 UNV Piperacillin Sod/ Tazobactam Sod 100 ml @ 25 mls/hr Q8HR IV 06/15/24 14:00 UNV Azithromycin 250 ml @ 125 mls/hr DAILY IV 06/16/24 10:00 UNV Laboratory Results Laboratory Tests 06/15/24 04:28 Chemistry Test 06/14/24 20:45 06/15/24 04:28 Albumin 4.6 g/dL (3.2-4.8) Calcium Level 9.6 mg/dL (8.7-10.4) 10.2 mg/dL (8.7-10.4) Total Protein 7.2 g/dL (5.7-8.2) Magnesium Level 2.1 mg/dL (1.6-2.6) Coagulation Test 06/14/24 20:45 06/15/24 01:11 Prothrombin Time 11.8 sec (9.3-11.8) Prothrombin Time INR 1.13 (0.9-1.15) Activated Partial Thromboplast Time 29.4 SEC (24.5-34.5) D-Dimer, Quantitative 0.52 mg/L FEU (0.0-0.49) H Lipid panel Test 06/15/24 04:28 Cholesterol Level 111 mg/dL (< 200) HDL Cholesterol 32 mg/dL (40-59) L Triglycerides Level 110 mg/dL (< 150) Cardiac Markers Test 06/14/24 20:45 B-Type Natriuretic Peptide 54.63 pg/mL (0-100) LFT Test 06/14/24 20:45 Alanine Aminotransferase (ALT) 25 U/L (7-40) Alkaline Phosphatase 46 U/L (46-116) Aspartate Amino Transferase (AST) 23 U/L (13-40) Total Bilirubin 0.9 mg/dL (0.2-1.0) HgA1c, TSH Test 06/15/24 04:28 Hemoglobin A1c 5.9 % A1C (<5.7) H Thyroid Stimulating Hormone (TSH) 1.37 uIU/mL (0.55-4.78) Blood Gas Results Test 06/14/24 21:06 FiO2 % 44.0 Assessment/Plan Assessment/Plan Acute hypoxic respiratory failure Rule out heart failure Possible acute upper respiratory infection Hypertension BPH Iron deficiency COVID and flu negative Plan Continue IV antibiotics Oxygen as needed Med neb treatments as needed Aspirin Lipitor Lasix Echocardiogram is pending Cardiology consult Monitor closely The rest of the management will depend on the hospital course Plan discussed with: Patient Date of Service: Jun 15, 2024 Billing Provider: JACOB CONCEPCION MD Common Visit Codes: NOT BILLABLE JACOB CONCEPCION MD Jun 15, 2024 13:47
[2024-06-15 14:11] LABS: Urine Bacteria None Seen /hpf (None Seen)
[2024-06-15 14:37] LABS: Urine Blood Negative /uL (Negative); Urine Clarity Clear (Clear); Urine Color Yellow (Yellow); Urine Protein, UAD TRACE (Negative); Urine Squamous Epithelial Cell None Seen /hpf (<5); Urine Urobilinogen Normal (Negative); Urine WBC < 1 /HPF (0-3)
[2024-06-15 14:44] LABS: Urine Specific Gravity > 1.050 (1.001-1.035)
[2024-06-15 14:56] LABS: Amphetamine Screen, Urine Neg (NEGATIVE); Barbiturate Scree,Urine Neg (NEGATIVE); Benzodiazephine Screen, Urine Neg (NEGATIVE); Cannabinoid Screen, Urine Neg (NEGATIVE); Cocaine Screen, Urine Neg (NEGATIVE); Opiate Scree,Urine Neg (NEGATIVE); Phencyclidine Screen, Urine Neg (NEGATIVE)
[2024-06-15] MEDS: AZITHROMYCIN 500MG/ 250ML 250 ML IV ONE (17:01)
[2024-06-15] MEDS: PIPERACILLIN-TAZOB 3.375GM 100 ML IV ONE (19:13)
[2024-06-15] MEDS ORDERED: PIPERACILLIN-TAZOB 3.375GM 100 ML IV SCH (22:00)
[2024-06-15] MEDS: ATORVASTATIN 20 MG TAB PO SCH (22:01)
--- NOTE | 2024-06-15 22:02 | DVHINCON2 ---
Date of service: Jun 15, 2024 Referring Physician Gucci Kwon MD Reason for Consultation Acute hypoxic respiratory failure, pneumonia History of Present Illness A 68-year-old man with PMHx of hypertension and BPH who presented to ED on 06/14/24 for evaluation of shortness of breath. Patient c/o 4-day history of shortness of breath. He described having left-sided chest pressure that is nonradiating with associated shortness of breath and orthopnea. Pt also with associated mild abdominal distention. On arrival to the ED, patient's heart rate was 105, he was tachypneic at 24, blood pressure was elevated at 158/98, he was saturating at 91%. Pt was placed on nasal cannula 6 L. Blood work revealed erythrocytosis, normal troponins, BNP 54, TSH within normal limits, hemoglobin A1c 5.9%, COVID and flu were negative. Chest x-ray showed rnha-[id number]-ttqlgkyz vascular congestion. EKG revealed a rate of 93, sinus rhythm, extreme axis, no ST changes, Q-waves on anterolateral aspect. Patient was admitted for further care and pulmonary consultation is requested for evaluation and management of acute hypoxic respiratory failure and pneumonia. Review of Systems: 14-point review of systems negative unless otherwise noted above. Past Medical History: Hypertension and BPH Past Surgical History: Bilateral knee surgery Medications: Reviewed. Allergies: No known drug allergies. Family History: No family history of premature CAD. No family history of lung disorders. Social History: Nonsmoker. No alcohol or illicit drug use. Family History: Patient reports no known family medical history. Allergies: Coded Allergies: NO KNOWN ALLERGIES (Unverified , 06/14/24) Home Meds Unable to Obtain Active Prescriptions or Reported Meds Current Medications Current Medications Medications (Trade) Dose Ordered Sig/Ting Route PRN Reason Start Time Stop Time Status Last Admin Albuterol (Ventolin Medneb) 2.5 mg Q6HPRN PRN NEB SHORTNESS OF BREATH 06/15/24 01:00 Furosemide (Lasix Injection) 20 mg BIDD IV 06/15/24 06:00 06/15/24 18:34 Aspirin 81 mg DAILY PO 06/15/24 10:00 06/15/24 10:22 Lisinopril (Zestril Tablet) 10 mg DAILY PO 06/15/24 10:00 06/15/24 10:22 Ondansetron HCl (Zofran) 4 mg Q4HP PRN IV NAUSEA / VOMITING 06/15/24 01:00 Enoxaparin Sodium (Lovenox) 40 mg DAILY SC 06/15/24 10:00 06/15/24 10:22 Acetaminophen (Tylenol Tablet) 650 mg Q6HP PRN PO PAIN SCALE 1-3 OR TEMP>100.4 06/15/24 01:00 Nitroglycerin (Ntrostat Sublingual) 0.4 mg Q5MINP PRN SL FOR CHEST PAIN 06/15/24 01:00 Morphine Sulfate 2 mg Q30M PRN IV FOR CHEST PAIN 06/15/24 01:00 Atorvastatin Calcium (Lipitor) 10 mg HS PO 06/15/24 22:00 Empaglifozin (Jardiance) 10 mg DAILY PO 06/16/24 10:00 Piperacillin Sod/ Tazobactam Sod 100 ml @ 25 mls/hr Q8HR IV 06/15/24 22:00 06/15/24 21:46 DC Azithromycin 250 ml @ 125 mls/hr DAILY IV 06/16/24 10:00 Piperacillin Sod/ Tazobactam Sod 100 ml @ 25 mls/hr Q8H IV 06/16/24 03:00 Vital Signs Vital Signs Date Time Temp Pulse Resp B/P (MAP) Pulse Ox O2 Delivery O2 Flow Rate FiO2 06/15/24 18:34 104/66 06/15/24 18:28 96 Mask 8.0 06/15/24 18:28 60 06/15/24 17:00 98.2 96 20 98.2 Physical Exam Gen.: Patient lying in bed in no apparent distress. On supplemental oxygen. Head: Normocephalic, atraumatic. Eyes: EOMI/PERRLA. Ears: Normal hearing. Normal anatomy. Neck/trachea: Trachea midline, supple. Nose: Normal external anatomy. Mouth: Moist mucous membranes. Chest: Decreased air entry bilaterally. No wheezing or rhonchi. Cardiovascular: Positive S1, positive S2. Regular rate and rhythm. Abdomen: Positive bowel sounds in all 4 quadrants. Soft, non-tender, non- distended. : Deferred. Rectal: Deferred. Skin: Warm, dry. Intact. Extremities: 2+ radial pulses bilaterally. No lower extremity edema. Neuro: Awake, alert, oriented x3. No gross motor or sensory deficits. Cranial nerves II through XII intact. Gait not assessed. Labs/Diagnostic Data Labs Test 06/15/24 13:37 06/15/24 09:26 06/15/24 04:28 06/15/24 01:11 Range/Units Urine Color Yellow Yellow Urine Clarity Clear Clear Urine pH 6.0 5.0-9.0 Urine Specific [place] > 1.050 H 1.001-1.035 Urine Protein Trace H Negative Urine Ketones Negative Negative Urine Blood Negative Negative /uL Urine Nitrite Negative Negative Urine Bilirubin Negative Negative Urine Urobilinogen Normal Negative mg/dL Urine Leukocyte Esterase Negative Negative /uL Urine RBC <1 0 - 3 /hpf Urine Microscopic WBC < 1 0-3 /HPF Urine Squamous Epithelial Cells None seen <5 /hpf Urine Bacteria None seen None Seen /hpf Urine Glucose Normal Normal mg/dL Urine Opiates Screen Neg NEGATIVE Urine Fentanyl Screen Neg NEGATIVE Urine Barbiturates Screen Neg NEGATIVE Urine Phencyclidine Screen Neg NEGATIVE Urine Amphetamines Screen Neg NEGATIVE Urine Benzodiazepines Screen Neg NEGATIVE Urine Cocaine Screen Neg NEGATIVE Urine Cannabinoids Screen Neg NEGATIVE Erythrocyte Sedimentation Rate 1 0-20 mm/hr C-Reactive Protein High Sensitivity 1.34 H <1.0 mg/dL White Blood Count 7.8 4.4-10.8 10^3/uL Red Blood Count 8.20 H 4.5-5.90 10^6/uL Hemoglobin 19.0 H 13.5-17.5 g/dL Hematocrit 63.8 H 41.0-53.0 % Mean Corpuscular Volume 77.8 L 80.0-100.0 fL Mean Corpuscular Hemoglobin 23.1 L 28.0-32.0 pg Mean Corpuscular Hemoglobin Concent 29.7 L 32.0-36.0 g/dL Red Cell Distribution Width 22.2 H 11.8-14.3 % Platelet Count 224 140-450 10^3/uL Mean Platelet Volume 8.6 6.9-10.8 fL Neutrophils (%) (Auto) 89.7 H 37.0-80.0 % Lymphocytes (%) (Auto) 7.5 L 10.0-50.0 % Monocytes (%) (Auto) 2.3 0.0-12.0 % Eosinophils (%) (Auto) 0.2 0.0-7.0 % Basophils (%) (Auto) 0.3 0.0-2.0 % Neutrophils # (Auto) 7.0 1.6-8.6 10 ^3/uL Lymphocytes # (Auto) 0.6 0.4-5.4 10 ^3/uL Monocytes # (Auto) 0.2 0-1.3 10 ^3/uL Eosinophils # (Auto) 0 0-0.8 10 ^3/uL Basophils # (Auto) 0 0-0.2 10 ^3/uL Nucleated Red Blood Cells 2.3 % Platelet Estimate [place] Large Platelets Few Hypochromasia (manual) Moderate Anisocytosis (manual) Slight Microcytosis Slight Sodium Level 138 136-145 mmol/L Potassium Level 4.9 3.5-5.1 mmol/L Chloride Level 99 98-107 mmol/L Carbon Dioxide Level 25 20-31 mmol/L Anion Gap 14 5-15 Blood Urea Nitrogen 16 9-23 mg/dL Creatinine 0.83 0.700-1.30 mg/dL Glomerular Filtration Rate Calc 95 >90 mL/min BUN/Creatinine Ratio 19.3 10.0-20.0 Serum Glucose 130 H 74-106 mg/dL Hemoglobin A1c 5.9 H <5.7 % A1C Calcium Level 10.2 8.7-10.4 mg/dL Magnesium Level 2.1 1.6-2.6 mg/dL Iron Level 32 L 65-175 ug/dL Total Iron Binding Capacity 391 250-425 ug/dL Percent Iron Saturation 8.2 L 20-55 % Triglycerides Level 110 < 150 mg/dL Cholesterol Level 111 < 200 mg/dL LDL Cholesterol 60 < 100 mg/dL HDL Cholesterol 32 L 40-59 mg/dL Thyroid Stimulating Hormone (TSH) 1.37 0.55-4.78 uIU/mL D-Dimer, Quantitative 0.52 H 0.0-0.49 mg/L FEU Test 06/14/24 21:37 06/14/24 21:06 06/14/24 20:45 Range/Units Lactic Acid Level 1.4 0.4-2.0 mmol/L Troponin I High Sensitivity < 3 L </=54 ng/L Blood Gas Specimen Type Venous Blood Gas Sample Site Vbg - n/a Blood Gas Patient Temperature 37.0 Arterial Blood Date Drawn [id number] Cam Test N/a Venous Blood pH 7.343 7.320-7.430 Venous Blood pCO2 at Patient Temp 58.6 *H 38.0-54.0 mmHg Venous Blood pO2 at Patient Temp 65.5 H 23.0-48.0 mmHg Venous Blood HCO3 31.1 H 22.0-29.0 mmol/L Venous Blood Base Excess 3.7 H -2.0-3.0 mmol/L Blood Gas Liter Flow 6.00 Blood Gas Modality Nasal cannula Blood Gas Spontaneous Rate 18 FiO2 % 44.0 Blood Gas Critical Value Read Back Yes Blood Gas Notified Whom Dr. nico perdue Blood Gas Notified Time [id number] Blood Gas Notified By [facility] Prothrombin Time 11.8 9.3-11.8 sec Prothrombin Time INR 1.13 0.9-1.15 Activated Partial Thromboplast Time 29.4 24.5-34.5 SEC Total Bilirubin 0.9 0.2-1.0 mg/dL Aspartate Amino Transferase (AST) 23 13-40 U/L Alanine Aminotransferase (ALT) 25 7-40 U/L Alkaline Phosphatase 46 46-116 U/L B-Type Natriuretic Peptide 54.63 0-100 pg/mL Total Protein 7.2 5.7-8.2 g/dL Albumin 4.6 3.2-4.8 g/dL Influenza Type A Antigen Negative Negative Influenza Type B Antigen Negative Negative SARS-CoV-2 Antigen (Rapid) Negative NEGATIVE Microbiology Date/Time Source Procedure Growth Status 06/14/24 21:37 Blood Blood Culture - Preliminary NO GROWTH AFTER 24 HOURS OF INCUBATION. Resulted Assessment Impression: Acute hypoxic respiratory failure Dependence on supplemental oxygen Pneumonia Atelectasis Congestive heart failure GERD Plan: Supplemental oxygen, on 10 LPM simple mask Titrate to keep O2 sats above 92%. Continue antibiotics Incentive spirometry Follow up sputum cultures Diurese to euvolemia w/ Lasix Monitor renal function. Monitor electrolytes. Supplement as necessary. Monitor ins and outs. DVT prophylaxis - Lovenox. Prognosis: Poor given patient's multiple co-morbidities. Rest of plan per hospitalist and other consultants. Thank you Dr. Kwon, for allowing me to participate in this patient's care. Further recommendations will depend on the patient's clinical course. Please do not hesitate to contact me if you have any questions or concerns. This medical document was created using an electronic medical record system with [employer] system. Although these documentations are being carefully reviewed, there may still be some phonetic and typographical changes. The errors are purely typographical, due to imperfection on the software program, and do not reflect any compromise in the patient's medical care. Plan discussed with: Patient, Other (LAINEY Castañeda/Dr. Kwon) PEDRO LUIS MCCURDY MD Jun 15, 2024 22:02
[2024-06-16] VITALS (9 sets, daily range): BP systolic 93–105; BP diastolic 58–75; PULSE 84–118; RESP 16–20; TEMP 97.5–98.6; O2SAT 79–96
[2024-06-16] MEDS: PIPERACILLIN-TAZOB 3.375GM 100 ML IV SCH (02:40)
[2024-06-16 08:18] LABS: Basophils # (auto) 0 10 ^3/uL (0-0.2); Eosinophils # (auto) 0.1 10 ^3/uL (0-0.8); Eosinophils % (auto) 0.9 % (0.0-7.0); Monocytes # (auto) 0.7 10 ^3/uL (0-1.3)
[2024-06-16 08:20] LABS: Basophils % (auto) 0.5 % (0.0-2.0); Hemoglobin 18.6 g/dL (13.5-17.5); Mean Corpuscular Hemoglobin 23.5 pg (28.0-32.0); Mean Corpuscular Volume 78.2 fL (80.0-100.0); Monocytes % (auto) 11.7 % (0.0-12.0); Neutrophils # (auto) 3.6 10 ^3/uL (1.6-8.6); Neutrophils % (auto) 55.9 % (37.0-80.0); Nucleated Red Blood Cells % 2.4 %; Platelet Count (auto) 246 10^3/uL (140-450); Red Blood Cells 7.93 10^6/uL (4.5-5.90); White Blood Cell 6.4 10^3/uL (4.4-10.8)
[2024-06-16 08:39] LABS: Red Cell Distribution Width 21.7 % (11.8-14.3)
[2024-06-16 09:08] LABS: Anisocytosis Slight; Hypochromia Slight; Large Platelets FEW; Platelet Estimate Adequa
[2024-06-16] MEDS: AZITHROMYCIN 500MG/ 250ML 250 ML IV SCH (09:49)
[2024-06-16] MEDS: EMPAGLIFLOZIN 10 MG TAB PO SCH (09:50)
[2024-06-16 11:05] LABS: Anion Gap 6 (5-15)
[2024-06-16 11:06] LABS: Calcium 9.8 mg/dL (8.7-10.4)
[2024-06-16 11:11] LABS: BUN/Creatinine Ratio 18.7 (10.0-20.0); Blood Urea Nitrogen 14 mg/dL (9-23)
[2024-06-16 11:16] LABS: Carbon Dioxide 35 mmol/L (20-31); Chloride 95 mmol/L (98-107); Glucose 107 mg/dL (74-106); Potassium 4.5 mmol/L (3.5-5.1); Sodium 136 mmol/L (136-145)
--- NOTE | 2024-06-16 11:39 | DVHPN2 ---
Subjective He is better He is down to 8 L nasal cannula now Changes from previous H/P or p: Changes Objective Vitals Vital Signs Date Time Temp Pulse Resp B/P (MAP) Pulse Ox O2 Delivery O2 Flow Rate FiO2 06/16/24 09:55 96 Oxymizer 8.0 06/16/24 09:55 N/A 06/16/24 09:49 101/65 06/16/24 09:00 97.5 92 16 97.5 Intake/Output Intake and Output 06/16/24 07:00 Intake Total 500 ml Output Total 1470 ml Balance -970 ml Intake Oral 500 ml Output Urine Total 420 ml Stool Total 1050 ml # Voids 2 General Appearance: Alert, Oriented X3, Cooperative, moderate distress Lungs: Clear to auscultation, Normal air movement Cardiovascular: Regular rate, Normal S1, Normal S2 Abdomen: Normal bowel sounds, Soft, No tenderness Extremities: Other (Trace edema bilaterally) Medications Current Medications Medications Dose Ordered Sig/Ting Route Start Time Stop Time Status Last Admin Dose Admin Albuterol 2.5 mg Q6HPRN PRN NEB 06/15/24 01:00 Furosemide 20 mg BIDD IV 06/15/24 06:00 06/16/24 06:20 20 MG Aspirin 81 mg DAILY PO 06/15/24 10:00 06/16/24 09:48 81 MG Lisinopril 10 mg DAILY PO 06/15/24 10:00 06/16/24 09:49 10 MG Ondansetron HCl 4 mg Q4HP PRN IV 06/15/24 01:00 Enoxaparin Sodium 40 mg DAILY SC 06/15/24 10:00 06/16/24 09:49 40 MG Acetaminophen 650 mg Q6HP PRN PO 06/15/24 01:00 Nitroglycerin 0.4 mg Q5MINP PRN SL 06/15/24 01:00 Morphine Sulfate 2 mg Q30M PRN IV 06/15/24 01:00 Atorvastatin Calcium 10 mg HS PO 06/15/24 22:00 06/15/24 22:01 10 MG Empaglifozin 10 mg DAILY PO 06/16/24 10:00 06/16/24 09:50 10 MG Azithromycin 250 ml @ 125 mls/hr DAILY IV 06/16/24 10:00 06/16/24 09:49 125 MLS/HR Piperacillin Sod/ Tazobactam Sod 100 ml @ 25 mls/hr Q8H IV 06/16/24 03:00 06/16/24 09:55 25 MLS/HR Laboratory Results Laboratory Tests 06/16/24 06:33 06/16/24 10:19 Chemistry Test 06/16/24 10:19 Calcium Level 9.8 mg/dL (8.7-10.4) Urinalysis Test 06/15/24 13:37 Urine Color Yellow (Yellow) Urine Clarity Clear (Clear) Urine pH 6.0 (5.0-9.0) Urine Specific [place] > 1.050 (1.001-1.035) Urine Protein Trace (Negative) H Urine Ketones Negative (Negative) Urine Blood Negative /uL (Negative) Urine Nitrite Negative (Negative) Urine Bilirubin Negative (Negative) Urine Urobilinogen Normal mg/dL (Negative) Urine Leukocyte Esterase Negative /uL (Negative) Urine RBC <1 /hpf (0 - 3) Urine Microscopic WBC < 1 /HPF (0-3) Urine Squamous Epithelial Cells None seen /hpf (<5) Urine Bacteria None seen /hpf (None Seen) Urine Glucose Normal mg/dL (Normal) Microbiology Microbiology Date/Time Source Procedure Growth Status 06/14/24 21:37 Blood Blood Culture - Preliminary NO GROWTH AFTER 24 HOURS OF INCUBATION. Resulted Assessment/Plan Assessment/Plan Acute hypoxic respiratory failure Rule out heart failure Possible acute upper respiratory infection Hypertension BPH Iron deficiency COVID and flu negative Plan Continue IV antibiotics Oxygen as needed Med neb treatments as needed Aspirin Lipitor Lasix Echocardiogram is pending Cardiology consult Monitor closely The rest of the management will depend on the hospital course 06/16/2024: Tapered down the oxygen as tolerated Echocardiogram is still pending Continue the IV antibiotics Continue med neb treatments Oxygen as needed Monitor closely Plan discussed with: Patient, Spouse Date of Service: Jun 16, 2024 Billing Provider: JACOB CONCEPCION MD Common Visit Codes: NOT BILLABLE JACOB CONCEPCION MD Jun 16, 2024 11:39
--- NOTE | 2024-06-16 15:07 | DVHPN2 ---
Progress Note Date Seen: Jun 16, 2024 Resident Creating Document: BENNIE HUGHES RESIDENT Medical Necessity Reason Pt with a Central, PICC or Fol: No Subjective Review of Systems Patient was seen and examined at bedside, he stated feeling better, he remains on simple mask at 8 L. He denies any chest pain, lightheadedness, dizziness, abdominal pain, nausea. He only complains of productive cough, although it has improved Objective vital signs Vital Sign Date Time Temp Pulse Resp B/P (MAP) Pulse Ox O2 Delivery O2 Flow Rate FiO2 06/16/24 13:00 98.6 84 16 105/75 (85) 96 98.6 06/16/24 09:55 Mask 8.0 06/16/24 09:55 60 Total Intake and Output 06/15/24 06/15/24 06/16/24 15:00 23:00 07:00 Intake Total 300 ml 200 ml Output Total 1050 ml 420 ml Balance -750 ml -220 ml medications Current Medications Medications Dose Ordered Sig/Ting Route Start Time Stop Time Status Last Admin Dose Admin Albuterol 2.5 mg Q6HPRN PRN NEB 06/15/24 01:00 Furosemide 20 mg BIDD IV 06/15/24 06:00 06/16/24 06:20 20 MG Aspirin 81 mg DAILY PO 06/15/24 10:00 06/16/24 09:48 81 MG Lisinopril 10 mg DAILY PO 06/15/24 10:00 06/16/24 09:49 10 MG Ondansetron HCl 4 mg Q4HP PRN IV 06/15/24 01:00 Enoxaparin Sodium 40 mg DAILY SC 06/15/24 10:00 06/16/24 09:49 40 MG Acetaminophen 650 mg Q6HP PRN PO 06/15/24 01:00 Nitroglycerin 0.4 mg Q5MINP PRN SL 06/15/24 01:00 Morphine Sulfate 2 mg Q30M PRN IV 06/15/24 01:00 Atorvastatin Calcium 10 mg HS PO 06/15/24 22:00 06/15/24 22:01 10 MG Empaglifozin 10 mg DAILY PO 06/16/24 10:00 06/16/24 09:50 10 MG Azithromycin 250 ml @ 125 mls/hr DAILY IV 06/16/24 10:00 06/16/24 09:49 125 MLS/HR Piperacillin Sod/ Tazobactam Sod 100 ml @ 25 mls/hr Q8H IV 06/16/24 03:00 06/16/24 09:55 25 MLS/HR Examination General: Awake, alert, comfortable appearing, in no acute distress. HEENT: Head is normocephalic and atraumatic. Pupils are equal, round, and reactive to light. Extraocular muscles are intact. No nasal discharge. No facial trauma. Intraoral exam shows moist mucous membranes with no tonsillar enlargement or exudate. Neck: Supple with no cervical lymphadenopathy No meningismus. No goiter. Heart: Regular rate without murmur, rub, or gallop. Lungs: Mild bilateral diffuse crackles Abdomen: No external sign of injury. Bowel sounds are present. Abdomen is soft, nontender. No rebound, no guarding, no rigidity. There are no palpable masses. There is no flank pain on exam. Extremities: Strong peripheral pulses. There is no clubbing, no cyanosis, and no edema. Skin: No rash. Neurologic: Cranial nerves II-XII intact without motor, sensory, or cerebellar deficit, no asterixis. laboratory and microbiology Laboratory Tests 06/16/24 10:19 06/16/24 06:33 Test 06/16/24 10:19 Range/Units Serum Glucose 107 H 74-106 mg/dL Microbiology Date/Time Source Procedure Growth Status 06/15/24 13:08 Sputum Gram Stain - Final Resulted 06/15/24 13:08 Sputum Respiratory Culture - Preliminary Resulted 06/14/24 21:37 Blood Blood Culture - Preliminary NO GROWTH AFTER 24 HOURS OF INCUBATION. Resulted Labs and/or images reviewed: Labs reviewed by me, Image(s) reviewed by me Problem List/Assessment/Plan Problem List/Assessment/Plan Acute diastolic CHF, NYHA class 3 Pneumonia gram (+) vs gram (-) Acute hypoxic respiratory failure Hypertension BPH, prostatitis? 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 Ferrera Plan discussed with: Patient, Other (RN) My Orders My Orders Orders - BENNIE HUGHES Procedure Category Date Status Time Psa Total+% Free LAB 06/15/24 In Process 19:25 Piperacillin-Tazob PHA 06/16/24 In Process 3.375gm (Zosyn 3.375g 03:00 BENNIE HUGHES RESIDENT Jun 16, 2024 15:07
--- NOTE | 2024-06-16 20:19 | DVHSR ---
APPROVED REPORT EXAM: Two-dimensional and M-mode echocardiogram with Doppler and color Doppler. Blood Pressure: 111/69 mmHg INDICATION EF RISK FACTORS Height: 5'7", Weight: 147 DIMENSIONS LVDd4.8 (3.8-5.7cm)LA (2D)3.8 (1.9-4.0cm)Aortic Root (2.0-3.7cm) LVDs3.3 (2.5-4.0cm)LA (MM) (1.9-4.0cm)Aortic Cusp Exc (1.5-2.0cm) EF (%) 59.0 (55-70%)Rt. Atrium (1.9-4.0cm)Asc. Aorta cm IVSd1.0 (0.7-1.1cm)RV (D) (1.8-2.4cm) PWd1.1 (0.7-1.1cm) Mitral Valve MitralMitral Stenosis E wave0.56m/sMV Mean GR.mmHg A wave0.92m/sMV Peak GR.mmHg E/A ratio0.62D MVAcm2 DECEL [id number] 1/2 Timems Aortic Valve Aortic ValveAortic Stenosis V11.00m/Wade Mean GR.4mmHg V21.39m/Wade Peak GR.8mmHg LVOT Diameter2.2 (1.8-2.4cm)Doppler AVA2.73cm2 Pulmonic Valve V20.92m/s Other Information Quality : Technically LimitedRhythm : Technically limited study due to body habitus. Conclusion Technically good study. Sinus rhythm. Mild left atrial enlargement. Valves are normal. EF of 60% with normal RV function. Dopplers unremarkable. Mild TR. No pericardial effusion masses or vegetations discernible.
[2024-06-16 20:49] LABS: Base Excess 6.3 mmol/L (-2.0-3.0)
--- NOTE | 2024-06-16 21:12 | DVH ---
CHEST RADIOGRAPH Indication: hypoxemia Technique: Single frontal view of the chest was obtained Comparison: XY CHEST PORTABLE on DOS: 06/14/24 FINDINGS: Lines and Tubes: None Lungs: Or inspiratory effort. Pleura: No effusion. No pneumothorax. Cardiomediastinal contours: Unremarkable Bones: No acute osseous abnormality. IMPRESSION: 1. Poor inspiratory effort with atelectasis in both bases. HS:Y
--- NOTE | 2024-06-16 23:14 | DVHPN2 ---
Progress Note - Dictate Date Seen: Jun 16, 2024 Medical Necessity Reason Pt with a Central, PICC or Fol: No Subjective Patient seen and examined at bedside. Remains on supplemental oxygen Overnight events reviewed. vital signs Vital Sign Date Time Temp Pulse Resp B/P (MAP) Pulse Ox O2 Delivery O2 Flow Rate FiO2 06/16/24 21:00 98.3 108 20 97/68 (78) 79 98.3 06/16/24 20:00 Room Air* 0 21 Total Intake and Output 06/15/24 06/15/24 06/16/24 15:00 23:00 07:00 Intake Total 300 ml 200 ml Output Total 1050 ml 420 ml Balance -750 ml -220 ml medications Current Medications Medications Dose Ordered Sig/Ting Route Start Time Stop Time Status Last Admin Dose Admin Albuterol 2.5 mg Q6HPRN PRN NEB 06/15/24 01:00 Furosemide 20 mg BIDD IV 06/15/24 06:00 06/16/24 19:15 20 MG Aspirin 81 mg DAILY PO 06/15/24 10:00 06/16/24 09:48 81 MG Lisinopril 10 mg DAILY PO 06/15/24 10:00 06/16/24 09:49 10 MG Ondansetron HCl 4 mg Q4HP PRN IV 06/15/24 01:00 Enoxaparin Sodium 40 mg DAILY SC 06/15/24 10:00 06/16/24 09:49 40 MG Acetaminophen 650 mg Q6HP PRN PO 06/15/24 01:00 Nitroglycerin 0.4 mg Q5MINP PRN SL 06/15/24 01:00 Morphine Sulfate 2 mg Q30M PRN IV 06/15/24 01:00 Atorvastatin Calcium 10 mg HS PO 06/15/24 22:00 06/16/24 21:50 10 MG Empaglifozin 10 mg DAILY PO 06/16/24 10:00 06/16/24 09:50 10 MG Azithromycin 250 ml @ 125 mls/hr DAILY IV 06/16/24 10:00 06/16/24 09:49 125 MLS/HR Piperacillin Sod/ Tazobactam Sod 100 ml @ 25 mls/hr Q8H IV 06/16/24 03:00 06/16/24 19:15 25 MLS/HR objective Gen.: Patient lying in bed in no apparent distress. On supplemental oxygen. Head: Normocephalic, atraumatic. Eyes: EOMI/PERRLA. Ears: Normal hearing. Normal anatomy. Neck/trachea: Trachea midline, supple. Nose: Normal external anatomy. Mouth: Moist mucous membranes. Chest: Decreased air entry bilaterally. No wheezing or rhonchi. Cardiovascular: Positive S1, positive S2. Regular rate and rhythm. Abdomen: Positive bowel sounds in all 4 quadrants. Soft, non-tender, non- distended. : Deferred. Rectal: Deferred. Skin: Warm, dry. Intact. Extremities: 2+ radial pulses bilaterally. No lower extremity edema. Neuro: Awake, alert, oriented x3. No gross motor or sensory deficits. Cranial nerves II through XII intact. Gait not assessed. laboratory and microbiology Laboratory Tests 06/16/24 10:19 06/16/24 06:33 Test 06/16/24 10:19 Range/Units Serum Glucose 107 H 74-106 mg/dL Assessment/Plan Impression: Acute hypoxic respiratory failure Dependence on supplemental oxygen Pneumonia Atelectasis Congestive heart failure GERD Events: Remains on supplemental oxygen, 8 LPM simple mask Taper O2 as tolerated Oxygen requirements remain high. Continue bronchodilators Continue antibiotics Incentive spirometry Diurese to euvolemia w/ Lasix Monitor renal function. Monitor electrolytes. Supplement as necessary. Obtain CXR in the AM. Upgrade to MICHAELA. Labs and imaging reviewed. Rest of plan as noted below. Plan: Supplemental oxygen Titrate to keep O2 sats above 92%. Continue antibiotics Incentive spirometry Follow up sputum cultures Diurese to euvolemia w/ Lasix Monitor renal function. Monitor electrolytes. Supplement as necessary. Monitor ins and outs. DVT prophylaxis - Lovenox. Prognosis: Poor given patient's multiple co-morbidities. Condition: Critical Rest of plan per hospitalist and other consultants. A total of 35 minutes of critical care time was spent reviewing the patient record, examining the patient, making a diagnostic and therapeutic plan, discussing this plan with the medical personnel, following up on diagnostic studies and following the patient for clinical stability excluding any and all procedures. At least 50% of this time was spent in direct, [id number] contact. Thank you Dr. Kwon, for allowing me to participate in this patient's care. Further recommendations will depend on the patient's clinical course. Please do not hesitate to contact me if you have any questions or concerns. This medical document was created using an electronic medical record system with [employer] computerized dictation system. Although these documentations are being carefully reviewed, there may still be some phonetic and typographical changes. The errors are purely typographical, due to imperfection on the software program, and do not reflect any compromise in the patient's medical care. Plan discussed with: Other (LAINEY Ruiz) Critical Care Time(min): 35 PEDRO LUIS MCCURDY MD Jun 16, 2024 23:14
[2024-06-17] VITALS (13 sets, daily range): BP systolic 96–120; BP diastolic 65–83; PULSE 59–101; RESP 16–20; TEMP 97.8–98.6; O2SAT 7–99
[2024-06-17] MEDS: ALBUTEROL SULF 2.5 MG/0.5ML(0.5%) NEB SOLN NEB PRN (03:54)
[2024-06-17 08:07] LABS: PSA Free 0.24 ng/mL; Prostate Specific Antigen 1.6 ng/mL (0.0-4.0)
[2024-06-17] MEDS ORDERED: REGADENOSON 0.4 MG/5 ML SYRG IV ONE ×2 (09:00→09:26)
--- NOTE | 2024-06-17 12:27 | DVHSR ---
APPROVED REPORT Exam: Nuclear Stress Test BMI: 0 Stress Test Details HR Max Heart Rate (APMHR): 151.929546 bpm Target HR (85% APMHR): 128.237026 bpm BP ECG Stress ECG Conclusion lvef 68% normal perfusion scan NM EXAM: Myocardial Perfusion REST/STRESS Imaging Protocol: Rest Tc-99m/Stress Tc-99m 1 day Resting Data Rest SPECT myocardial perfusion imaging was performed in supine position 60 minutes following the int ravenous injection of 14.5 mCi of Tc-99m Sestamibi. Time of rest injection: 0725 Time of rest imagin Administration Route: IV Administration Site: Right Hand Pharmacologic Stress Pharmacologic stress test was performed by injecting Regadenoson 0.4 mg IV push followed by the intra venous injection of 33 mCi of Tc-99m Sestamibi. Time of stress injection: 0935 Time of stress imagin Administration Route: IV Administration Site: Right Hand The images were gated to evaluate regional wall motion and calculate left ventricular ejection fracti on. Stress only was performed in the Supine position. Nuclear Conclusion Nuclear Findings: negative for ischemia lvef 68% normal perfusion scan
[2024-06-17] MEDS: PIPERACILLIN-TAZOB 3.375GM 100 ML IV SCH (15:28)
--- NOTE | 2024-06-17 15:32 | DVHPN2 ---
Subjective He says he is feeling better today He is down to 4 L nasal cannula now The stress test was done today was negative Changes from previous H/P or p: Changes Objective Vitals Vital Signs Date Time Temp Pulse Resp B/P (MAP) Pulse Ox O2 Delivery O2 Flow Rate FiO2 06/17/24 12:45 98.6 99 17 98/65 (76) 91 98.6 06/17/24 11:07 Nasal Cannula* 4 36 Intake/Output Intake and Output 06/17/24 07:00 Intake Total 2050 ml Output Total 2175 ml Balance -125 ml Intake Oral 1150 ml IV Total 450 ml Tube Feeding 450 ml Output Urine Total 2175 ml # Bowel Movements 1 General Appearance: Alert, Oriented X3, Cooperative, moderate distress Lungs: Clear to auscultation, Normal air movement Cardiovascular: Regular rate, Normal S1, Normal S2 Abdomen: Normal bowel sounds, Soft, No tenderness Extremities: Other (Trace edema bilaterally) Medications Current Medications Medications Dose Ordered Sig/Ting Route Start Time Stop Time Status Last Admin Dose Admin Albuterol 2.5 mg Q6HPRN PRN NEB 06/15/24 01:00 06/17/24 03:54 2.5 MG Furosemide 20 mg BIDD IV 06/15/24 06:00 06/17/24 05:58 20 MG Aspirin 81 mg DAILY PO 06/15/24 10:00 06/17/24 08:29 81 MG Lisinopril 10 mg DAILY PO 06/15/24 10:00 06/17/24 08:28 10 MG Ondansetron HCl 4 mg Q4HP PRN IV 06/15/24 01:00 Enoxaparin Sodium 40 mg DAILY SC 06/15/24 10:00 06/16/24 09:49 40 MG Acetaminophen 650 mg Q6HP PRN PO 06/15/24 01:00 Nitroglycerin 0.4 mg Q5MINP PRN SL 06/15/24 01:00 Morphine Sulfate 2 mg Q30M PRN IV 06/15/24 01:00 Atorvastatin Calcium 10 mg HS PO 06/15/24 22:00 06/16/24 21:50 10 MG Empaglifozin 10 mg DAILY PO 06/16/24 10:00 06/17/24 08:35 10 MG Azithromycin 250 ml @ 125 mls/hr DAILY IV 06/16/24 10:00 06/17/24 12:59 125 MLS/HR Piperacillin Sod/ Tazobactam Sod 100 ml @ 25 mls/hr Q8H IV 06/17/24 14:00 06/17/24 15:28 25 MLS/HR Laboratory Results Laboratory Tests 06/16/24 06:33 06/16/24 10:19 Urinalysis Test 06/15/24 13:37 Urine Color Yellow (Yellow) Urine Clarity Clear (Clear) Urine pH 6.0 (5.0-9.0) Urine Specific [place] > 1.050 (1.001-1.035) Urine Protein Trace (Negative) H Urine Ketones Negative (Negative) Urine Blood Negative /uL (Negative) Urine Nitrite Negative (Negative) Urine Bilirubin Negative (Negative) Urine Urobilinogen Normal mg/dL (Negative) Urine Leukocyte Esterase Negative /uL (Negative) Urine RBC <1 /hpf (0 - 3) Urine Microscopic WBC < 1 /HPF (0-3) Urine Squamous Epithelial Cells None seen /hpf (<5) Urine Bacteria None seen /hpf (None Seen) Urine Glucose Normal mg/dL (Normal) Blood Gas Results Test 06/16/24 20:35 Arterial Blood pH 7.379 (7.350-7.450) FiO2 % 50.0 Microbiology Microbiology Date/Time Source Procedure Growth Status 06/15/24 13:08 Sputum Gram Stain - Final Resulted 06/15/24 13:08 Sputum Respiratory Culture - Preliminary Resulted 06/14/24 21:37 Blood Blood Culture - Preliminary NO GROWTH AFTER 48 HOURS OF INCUBATION. Resulted Assessment/Plan Assessment/Plan Acute hypoxic respiratory failure Rule out heart failure Possible acute upper respiratory infection Hypertension BPH Iron deficiency COVID and flu negative Plan Continue IV antibiotics Oxygen as needed Med neb treatments as needed Aspirin Lipitor Lasix Echocardiogram is pending Cardiology consult Monitor closely The rest of the management will depend on the hospital course 06/16/2024: Tapered down the oxygen as tolerated Echocardiogram is still pending Continue the IV antibiotics Continue med neb treatments Oxygen as needed Monitor closely 06/17/2024: Stress test is normal The echocardiogram showed EF 60% ejection fraction and otherwise normal Continue IV antibiotics Oxygen as needed Med neb treatments Discharge planning for tomorrow We will do a blood gas on room air in the morning to see if he needs home O2 Plan discussed with: Patient, Spouse Date of Service: Jun 17, 2024 Billing Provider: JACOB CONCEPCION MD Common Visit Codes: NOT BILLABLE JACOB CONCEPCION MD Jun 17, 2024 15:32
--- NOTE | 2024-06-17 22:50 | DVHPN2 ---
Progress Note - Dictate Date Seen: Jun 17, 2024 Medical Necessity Reason Pt with a Central, PICC or Fol: No Subjective Patient seen and examined at bedside. Remains on supplemental oxygen Overnight events reviewed. vital signs Vital Sign Date Time Temp Pulse Resp B/P (MAP) Pulse Ox O2 Delivery O2 Flow Rate FiO2 06/17/24 21:00 98.6 98 18 120/83 (95) 99 98.6 06/17/24 20:00 Nasal Cannula* 4 36 Total Intake and Output 06/16/24 06/16/24 06/17/24 15:00 23:00 07:00 Intake Total 670 ml 930 ml 450 ml Output Total 1675 ml 500 ml Balance 670 ml -745 ml -50 ml medications Current Medications Medications Dose Ordered Sig/Ting Route Start Time Stop Time Status Last Admin Dose Admin Albuterol 2.5 mg Q6HPRN PRN NEB 06/15/24 01:00 06/17/24 03:54 2.5 MG Furosemide 20 mg BIDD IV 06/15/24 06:00 06/17/24 05:58 20 MG Aspirin 81 mg DAILY PO 06/15/24 10:00 06/17/24 08:29 81 MG Lisinopril 10 mg DAILY PO 06/15/24 10:00 06/17/24 08:28 10 MG Ondansetron HCl 4 mg Q4HP PRN IV 06/15/24 01:00 Enoxaparin Sodium 40 mg DAILY SC 06/15/24 10:00 06/16/24 09:49 40 MG Acetaminophen 650 mg Q6HP PRN PO 06/15/24 01:00 Nitroglycerin 0.4 mg Q5MINP PRN SL 06/15/24 01:00 Morphine Sulfate 2 mg Q30M PRN IV 06/15/24 01:00 Atorvastatin Calcium 10 mg HS PO 06/15/24 22:00 06/17/24 21:42 10 MG Empaglifozin 10 mg DAILY PO 06/16/24 10:00 06/17/24 08:35 10 MG Azithromycin 250 ml @ 125 mls/hr DAILY IV 06/16/24 10:00 06/17/24 12:59 125 MLS/HR Piperacillin Sod/ Tazobactam Sod 100 ml @ 25 mls/hr Q8H IV 06/17/24 14:00 06/17/24 21:42 25 MLS/HR objective Gen.: Patient lying in bed in no apparent distress. On supplemental oxygen. Head: Normocephalic, atraumatic. Eyes: EOMI/PERRLA. Ears: Normal hearing. Normal anatomy. Neck/trachea: Trachea midline, supple. Nose: Normal external anatomy. Mouth: Moist mucous membranes. Chest: Decreased air entry bilaterally. No wheezing or rhonchi. Cardiovascular: Positive S1, positive S2. Regular rate and rhythm. Abdomen: Positive bowel sounds in all 4 quadrants. Soft, non-tender, non- distended. : Deferred. Rectal: Deferred. Skin: Warm, dry. Intact. Extremities: 2+ radial pulses bilaterally. No lower extremity edema. Neuro: Awake, alert, oriented x3. No gross motor or sensory deficits. Cranial nerves II through XII intact. Gait not assessed. laboratory and microbiology Laboratory Tests 06/16/24 10:19 06/16/24 06:33 Test 06/16/24 10:19 Range/Units Serum Glucose 107 H 74-106 mg/dL Assessment/Plan Impression: Acute hypoxic respiratory failure Dependence on supplemental oxygen Chronic hypercarbic respiratory failure Pneumonia Atelectasis Congestive heart failure GERD Events: Remains on supplemental oxygen, 4 LPM NC Taper O2 as tolerated Titrate to keep O2 sats between 88-94%. BiPAP at night while sleeping DME for NIPPV - for chronic hypercarbic respiratory failure Assess for home O2 requirements Continue antibiotics Sputum cultures grew normal oropharyngeal wiliam Blood cultures show no growth after 72 hours Incentive spirometry Cardiology recs appreciated Stress test negative Labs and imaging reviewed. Rest of plan as noted below. Plan: Supplemental oxygen Titrate to keep O2 sats between 88-94%. Continue antibiotics Incentive spirometry Follow up sputum cultures Maintain euvolemia Monitor renal function. Monitor electrolytes. Supplement as necessary. Monitor ins and outs. DVT prophylaxis - Lovenox. Prognosis: Poor given patient's multiple co-morbidities. Rest of plan per hospitalist and other consultants. Thank you Dr. Kwon, for allowing me to participate in this patient's care. Further recommendations will depend on the patient's clinical course. Please do not hesitate to contact me if you have any questions or concerns. This medical document was created using an electronic medical record system with [employer] system. Although these documentations are being carefully reviewed, there may still be some phonetic and typographical changes. The errors are purely typographical, due to imperfection on the software program, and do not reflect any compromise in the patient's medical care. Plan discussed with: Patient, Other (LAINEY Ruiz) PEDRO LUIS MCCURDY MD Jun 17, 2024 22:50
[2024-06-18] VITALS (8 sets, daily range): BP systolic 101–124; BP diastolic 65–86; PULSE 93–111; RESP 18–20; TEMP 98.2–99.1; O2SAT 90–94
[2024-06-18 11:39] LABS: Potassium 4.4 mmol/L (3.5-5.1)
[2024-06-18 11:40] LABS: Anion Gap 6 (5-15); Chloride 94 mmol/L (98-107); Sodium 133 mmol/L (136-145)
[2024-06-18 11:41] LABS: Calcium 9.6 mg/dL (8.7-10.4); Carbon Dioxide 33 mmol/L (20-31)
[2024-06-18 11:45] LABS: Glucose 98 mg/dL (74-106)
[2024-06-18 11:46] LABS: BUN/Creatinine Ratio 11.5 (10.0-20.0); Blood Urea Nitrogen 9 mg/dL (9-23); Magnesium 2.4 mg/dL (1.6-2.6)
[2024-06-18 12:03] LABS: Base Excess 6.6 mmol/L (-2.0-3.0)
--- NOTE | 2024-06-18 12:31 | DVHPN2 ---
Subjective He is feeling better however he is still hypoxic The blood gas shows PO2 of 53.1 so he qualifies for home O2 Changes from previous H/P or p: Changes Objective Vitals Vital Signs Date Time Temp Pulse Resp B/P (MAP) Pulse Ox O2 Delivery O2 Flow Rate FiO2 06/18/24 10:35 100 18 92 4.0 06/18/24 10:00 Nasal Cannula* 36 06/18/24 05:42 95/50 06/18/24 01:00 98.4 98.4 Intake/Output Intake and Output 06/18/24 07:00 Intake Total 1935 ml Output Total 1600 ml Balance 335 ml Intake Oral 1360 ml IV Total 575 ml Output Urine Total 1600 ml # Voids 4 # Bowel Movements 1 General Appearance: Alert, Oriented X3, Cooperative, moderate distress Lungs: Clear to auscultation, Normal air movement Cardiovascular: Regular rate, Normal S1, Normal S2 Abdomen: Normal bowel sounds, Soft, No tenderness Extremities: Other (Trace edema bilaterally) Medications Current Medications Medications Dose Ordered Sig/Ting Route Start Time Stop Time Status Last Admin Dose Admin Albuterol 2.5 mg Q6HPRN PRN NEB 06/15/24 01:00 06/17/24 03:54 2.5 MG Furosemide 20 mg BIDD IV 06/15/24 06:00 06/17/24 05:58 20 MG Aspirin 81 mg DAILY PO 06/15/24 10:00 06/17/24 08:29 81 MG Lisinopril 10 mg DAILY PO 06/15/24 10:00 06/17/24 08:28 10 MG Ondansetron HCl 4 mg Q4HP PRN IV 06/15/24 01:00 Enoxaparin Sodium 40 mg DAILY SC 06/15/24 10:00 06/16/24 09:49 40 MG Acetaminophen 650 mg Q6HP PRN PO 06/15/24 01:00 Nitroglycerin 0.4 mg Q5MINP PRN SL 06/15/24 01:00 Morphine Sulfate 2 mg Q30M PRN IV 06/15/24 01:00 Atorvastatin Calcium 10 mg HS PO 06/15/24 22:00 06/17/24 21:42 10 MG Empaglifozin 10 mg DAILY PO 06/16/24 10:00 06/17/24 08:35 10 MG Azithromycin 250 ml @ 125 mls/hr DAILY IV 06/16/24 10:00 06/17/24 12:59 125 MLS/HR Piperacillin Sod/ Tazobactam Sod 100 ml @ 25 mls/hr Q8H IV 06/17/24 14:00 06/18/24 05:43 25 MLS/HR Laboratory Results Laboratory Tests 06/16/24 06:33 06/18/24 10:50 Chemistry Test 06/18/24 10:50 Calcium Level 9.6 mg/dL (8.7-10.4) Magnesium Level 2.4 mg/dL (1.6-2.6) Urinalysis Test 06/15/24 13:37 Urine Color Yellow (Yellow) Urine Clarity Clear (Clear) Urine pH 6.0 (5.0-9.0) Urine Specific [place] > 1.050 (1.001-1.035) Urine Protein Trace (Negative) H Urine Ketones Negative (Negative) Urine Blood Negative /uL (Negative) Urine Nitrite Negative (Negative) Urine Bilirubin Negative (Negative) Urine Urobilinogen Normal mg/dL (Negative) Urine Leukocyte Esterase Negative /uL (Negative) Urine RBC <1 /hpf (0 - 3) Urine Microscopic WBC < 1 /HPF (0-3) Urine Squamous Epithelial Cells None seen /hpf (<5) Urine Bacteria None seen /hpf (None Seen) Urine Glucose Normal mg/dL (Normal) Blood Gas Results Test 06/18/24 11:46 Arterial Blood pH 7.354 (7.350-7.450) FiO2 % 21.0 Microbiology Microbiology Date/Time Source Procedure Growth Status 06/15/24 13:08 Sputum Gram Stain - Final Complete 06/15/24 13:08 Sputum Respiratory Culture - Final Complete 06/14/24 21:37 Blood Blood Culture - Preliminary NO GROWTH AFTER 72 HOURS OF INCUBATION. Resulted Assessment/Plan Assessment/Plan Acute hypoxic respiratory failure Rule out heart failure Possible acute upper respiratory infection Hypertension BPH Iron deficiency COVID and flu negative Plan Continue IV antibiotics Oxygen as needed Med neb treatments as needed Aspirin Lipitor Lasix Echocardiogram is pending Cardiology consult Monitor closely The rest of the management will depend on the hospital course 06/16/2024: Tapered down the oxygen as tolerated Echocardiogram is still pending Continue the IV antibiotics Continue med neb treatments Oxygen as needed Monitor closely 06/17/2024: Stress test is normal The echocardiogram showed EF 60% ejection fraction and otherwise normal Continue IV antibiotics Oxygen as needed Med neb treatments Discharge planning for tomorrow We will do a blood gas on room air in the morning to see if he needs home O2 06/18/2024: Hypoxia : Arrange home O2 Continue IV antibiotics Once the home O2 is arranged and the patient can be discharged home The rest of the management will depend on the hospital course Plan discussed with: Patient My Orders Orders - JACOB CONCEPCION MD Procedure Category Date Status Time Abg W/ Co-Ox RT 06/18/24 Logged 09:33 Date of Service: Jun 18, 2024 Billing Provider: JACOB CONCEPCION MD Common Visit Codes: NOT BILLABLE JACOB CONCEPCION MD Jun 18, 2024 12:30
--- NOTE | 2024-06-18 17:51 | DVHPN2 ---
Progress Note Date Seen: Jun 18, 2024 Resident Creating Document: BENNIE HUGHES RESIDENT Medical Necessity Reason Pt with a Central, PICC or Fol: No Subjective Review of Systems Patient was seen and examined at bedside, he stated feeling better, he remains on nasal cannula at 4 L. He denies any chest pain, lightheadedness, dizziness, abdominal pain, nausea. He only complains of productive cough, although it has improved Objective vital signs Vital Sign Date Time Temp Pulse Resp B/P (MAP) Pulse Ox O2 Delivery O2 Flow Rate FiO2 06/18/24 12:52 98.5 96 20 109/76 (87) 90 98.5 06/18/24 10:35 4.0 06/18/24 10:00 Nasal Cannula* 36 Total Intake and Output 06/17/24 06/17/24 06/18/24 15:00 23:00 07:00 Intake Total 350 ml 860 ml 725 ml Output Total 1300 ml 300 ml Balance 350 ml -440 ml 425 ml medications Current Medications Medications Dose Ordered Sig/Ting Route Start Time Stop Time Status Last Admin Dose Admin Albuterol 2.5 mg Q6HPRN PRN NEB 06/15/24 01:00 06/17/24 03:54 2.5 MG Furosemide 20 mg BIDD IV 06/15/24 06:00 06/17/24 05:58 20 MG Aspirin 81 mg DAILY PO 06/15/24 10:00 06/18/24 12:33 81 MG Lisinopril 10 mg DAILY PO 06/15/24 10:00 06/17/24 08:28 10 MG Ondansetron HCl 4 mg Q4HP PRN IV 06/15/24 01:00 Enoxaparin Sodium 40 mg DAILY SC 06/15/24 10:00 06/16/24 09:49 40 MG Acetaminophen 650 mg Q6HP PRN PO 06/15/24 01:00 Nitroglycerin 0.4 mg Q5MINP PRN SL 06/15/24 01:00 Morphine Sulfate 2 mg Q30M PRN IV 06/15/24 01:00 Atorvastatin Calcium 10 mg HS PO 06/15/24 22:00 06/17/24 21:42 10 MG Empaglifozin 10 mg DAILY PO 06/16/24 10:00 06/18/24 12:34 10 MG Azithromycin 250 ml @ 125 mls/hr DAILY IV 06/16/24 10:00 06/18/24 10:00 125 MLS/HR Piperacillin Sod/ Tazobactam Sod 100 ml @ 25 mls/hr Q8H IV 06/17/24 14:00 06/18/24 12:44 25 MLS/HR Examination General: Awake, alert, comfortable appearing, in no acute distress. HEENT: Head is normocephalic and atraumatic. Pupils are equal, round, and reactive to light. Extraocular muscles are intact. No nasal discharge. No facial trauma. Intraoral exam shows moist mucous membranes with no tonsillar enlargement or exudate. Neck: Supple with no cervical lymphadenopathy No meningismus. No goiter. Heart: Regular rate without murmur, rub, or gallop. Lungs: Scattered diffuse crackles Abdomen: No external sign of injury. Bowel sounds are present. Abdomen is soft, nontender. No rebound, no guarding, no rigidity. There are no palpable masses. There is no flank pain on exam. Extremities: Strong peripheral pulses. There is no clubbing, no cyanosis, and no edema. Skin: No rash. Neurologic: Cranial nerves II-XII intact without motor, sensory, or cerebellar deficit, no asterixis. laboratory and microbiology Laboratory Tests 06/18/24 10:50 06/16/24 06:33 Test 06/18/24 10:50 Range/Units Serum Glucose 98 74-106 mg/dL Microbiology Date/Time Source Procedure Growth Status 06/15/24 13:08 Sputum Gram Stain - Final Complete 06/15/24 13:08 Sputum Respiratory Culture - Final Complete 06/14/24 21:37 Blood Blood Culture - Preliminary NO GROWTH AFTER 72 HOURS OF INCUBATION. Resulted Labs and/or images reviewed: Labs reviewed by me, Image(s) reviewed by me Problem List/Assessment/Plan Problem List/Assessment/Plan Acute diastolic CHF, NYHA class 3 Pneumonia gram (+) vs gram (-) Acute hypoxic respiratory failure Obesity hypoventilation syndrome Possible sleep apnea Hypertension BPH, prostatitis? 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 We will sign off. Case was discussed with Dr. Ferrera Plan discussed with: Patient, Other (RN) BENNIE HUGHES RESIDENT Jun 18, 2024 17:51
--- NOTE | 2024-06-18 23:17 | DVHPN2 ---
Progress Note - Dictate Date Seen: Jun 18, 2024 Medical Necessity Reason Pt with a Central, PICC or Fol: No Subjective Patient seen and examined at bedside. Remains on supplemental oxygen Overnight events reviewed. vital signs Vital Sign Date Time Temp Pulse Resp B/P (MAP) Pulse Ox O2 Delivery O2 Flow Rate FiO2 06/18/24 20:00 Nasal Cannula* 06 1806/18/24 17:00 99.1 93 18 114/86 (95) 91 99.1 Total Intake and Output 06/17/24 06/17/24 06/18/24 15:00 23:00 07:00 Intake Total 350 ml 860 ml 725 ml Output Total 1300 ml 300 ml Balance 350 ml -440 ml 425 ml objective Gen.: Patient lying in bed in no apparent distress. On supplemental oxygen. Head: Normocephalic, atraumatic. Eyes: EOMI/PERRLA. Ears: Normal hearing. Normal anatomy. Neck/trachea: Trachea midline, supple. Nose: Normal external anatomy. Mouth: Moist mucous membranes. Chest: Decreased air entry bilaterally. No wheezing or rhonchi. Cardiovascular: Positive S1, positive S2. Regular rate and rhythm. Abdomen: Positive bowel sounds in all 4 quadrants. Soft, non-tender, non- distended. : Deferred. Rectal: Deferred. Skin: Warm, dry. Intact. Extremities: 2+ radial pulses bilaterally. No lower extremity edema. Neuro: Awake, alert, oriented x3. No gross motor or sensory deficits. Cranial nerves II through XII intact. Gait not assessed. laboratory and microbiology Laboratory Tests 06/18/24 10:50 06/16/24 06:33 Test 06/18/24 10:50 Range/Units Serum Glucose 98 74-106 mg/dL Assessment/Plan Impression: Acute hypoxic respiratory failure Dependence on supplemental oxygen Chronic hypercarbic respiratory failure Pneumonia Atelectasis Congestive heart failure GERD Events: Remains on supplemental oxygen, 4 LPM NC Taper O2 as tolerated Titrate to keep O2 sats between 88-94%. BiPAP at night while sleeping DME for NIPPV - for chronic hypercarbic respiratory failure Assess for home O2 requirements Continue bronchodilators Continue antibiotics Sputum cultures grew normal oropharyngeal wiliam Blood cultures show no growth after 72 hours Incentive spirometry Cardiology recs appreciated Stress test negative Labs and imaging reviewed. Rest of plan as noted below. Plan: Supplemental oxygen Titrate to keep O2 sats between 88-94%. Continue antibiotics Incentive spirometry Follow up sputum cultures Maintain euvolemia Monitor renal function. Monitor electrolytes. Supplement as necessary. Monitor ins and outs. DVT prophylaxis - Lovenox. Prognosis: Guarded given patient's multiple co-morbidities. Rest of plan per hospitalist and other consultants. Thank you Dr. Kwon, for allowing me to participate in this patient's care. Further recommendations will depend on the patient's clinical course. Please do not hesitate to contact me if you have any questions or concerns. This medical document was created using an electronic medical record system with [employer] dictation system. Although these documentations are being carefully reviewed, there may still be some phonetic and typographical changes. The errors are purely typographical, due to imperfection on the software program, and do not reflect any compromise in the patient's medical care. Plan discussed with: Patient, Other (LAINEY Ruiz) PEDRO LUIS MCCURDY MD Jun 18, 2024 23:17
--- NOTE | 2024-06-21 20:29 | DVHDS2 ---
Discharge Summary Date of Admission Jun 15, 2024 at 00:53 Date of Discharge: Jun 18, 2024 Labs/Diagnostic Data: Laboratory Results Test 06/18/24 11:46 06/18/24 10:50 06/16/24 06:33 06/15/24 13:37 Blood Gas Specimen Type Arterial Blood Gas Sample Site Right radial Blood Gas Patient Temperature 37.0 Arterial Blood Date Drawn [id number] Arterial Blood pH 7.354 (7.350-7.450) Arterial Blood Partial Pressure CO2 65.2 mmHg (35.0-48.0) Arterial Blood Partial Pressure O2 53.1 mmHg (83.0-108.0) Arterial Blood HCO3 35.5 mmol/L (21.0-28.0) Arterial Blood Oxygen Saturation 85.1 % (94.0-98.0) Arterial Blood Base Excess 6.6 mmol/L (-2.0-3.0) Arterial Blood Oxyhemoglobin 83.8 % (94.0-98.0) Arterial Blood Carboxyhemoglobin 1.1 % (0.5-1.5) Arterial Blood Methemoglobin 0.4 % (0.0-1.5) Cam Test Yes Blood Gas Total Hemoglobin 19.30 g/dL (13.5-17.5) Blood Gas Modality Room air FiO2 % 21.0 Blood Gas Critical Value Read Back Yes Blood Gas Notified Whom sadaf Kwon md Blood Gas Notified Time [id number] Blood Gas Notified By Library Director norman pickett Sodium Level 133 mmol/L (136-145) Potassium Level 4.4 mmol/L (3.5-5.1) Chloride Level 94 mmol/L (98-107) Carbon Dioxide Level 33 mmol/L (20-31) Anion Gap 6 (5-15) Blood Urea Nitrogen 9 mg/dL (9-23) Creatinine 0.78 mg/dL (0.700-1.30) Glomerular Filtration Rate Calc 97 mL/min (>90) BUN/Creatinine Ratio 11.5 (10.0-20.0) Serum Glucose 98 mg/dL (74-106) Calcium Level 9.6 mg/dL (8.7-10.4) Magnesium Level 2.4 mg/dL (1.6-2.6) White Blood Count 6.4 10^3/uL (4.4-10.8) Red Blood Count 7.93 10^6/uL (4.5-5.90) Hemoglobin 18.6 g/dL (13.5-17.5) Hematocrit 62.0 % (41.0-53.0) Mean Corpuscular Volume 78.2 fL (80.0-100.0) Mean Corpuscular Hemoglobin 23.5 pg (28.0-32.0) Mean Corpuscular Hemoglobin Concent 30.0 g/dL (32.0-36.0) Red Cell Distribution Width 21.7 % (11.8-14.3) Platelet Count 246 10^3/uL (140-450) Mean Platelet Volume 8.5 fL (6.9-10.8) Neutrophils (%) (Auto) 55.9 % (37.0-80.0) Lymphocytes (%) (Auto) 31.0 % (10.0-50.0) Monocytes (%) (Auto) 11.7 % (0.0-12.0) Eosinophils (%) (Auto) 0.9 % (0.0-7.0) Basophils (%) (Auto) 0.5 % (0.0-2.0) Neutrophils # (Auto) 3.6 10 ^3/uL (1.6-8.6) Lymphocytes # (Auto) 2.0 10 ^3/uL (0.4-5.4) Monocytes # (Auto) 0.7 10 ^3/uL (0-1.3) Eosinophils # (Auto) 0.1 10 ^3/uL (0-0.8) Basophils # (Auto) 0 10 ^3/uL (0-0.2) Nucleated Red Blood Cells 2.4 % Platelet Estimate [place] Large Platelets Few Hypochromasia (manual) Slight Anisocytosis (manual) Slight Microcytosis Slight Urine Color Yellow (Yellow) Urine Clarity Clear (Clear) Urine pH 6.0 (5.0-9.0) Urine Specific [place] > 1.050 (1.001-1.035) Urine Protein Trace (Negative) Urine Ketones Negative (Negative) Urine Blood Negative /uL (Negative) Urine Nitrite Negative (Negative) Urine Bilirubin Negative (Negative) Urine Urobilinogen Normal mg/dL (Negative) Urine Leukocyte Esterase Negative /uL (Negative) Urine RBC <1 /hpf (0 - 3) Urine Microscopic WBC < 1 /HPF (0-3) Urine Squamous Epithelial Cells None seen /hpf (<5) Urine Bacteria None seen /hpf (None Seen) Urine Glucose Normal mg/dL (Normal) Urine Opiates Screen Neg (NEGATIVE) Urine Fentanyl Screen Neg (NEGATIVE) Urine Barbiturates Screen Neg (NEGATIVE) Urine Phencyclidine Screen Neg (NEGATIVE) Urine Amphetamines Screen Neg (NEGATIVE) Urine Benzodiazepines Screen Neg (NEGATIVE) Urine Cocaine Screen Neg (NEGATIVE) Urine Cannabinoids Screen Neg (NEGATIVE) Test 06/15/24 09:26 06/15/24 04:28 06/15/24 01:11 06/14/24 21:37 Erythrocyte Sedimentation Rate 1 mm/hr (0-20) C-Reactive Protein High Sensitivity 1.34 mg/dL (<1.0) Free Prostate Specific Antigen 0.24 ng/mL (N/A) Percent Free Prostate Specific Ag 15.0 % (.) Prostate Specific Antigen Total 1.6 ng/mL (0.0-4.0) Hemoglobin A1c 5.9 % A1C (<5.7) Iron Level 32 ug/dL (65-175) Total Iron Binding Capacity 391 ug/dL (250-425) Percent Iron Saturation 8.2 % (20-55) Erythropoietin 23.3 mIU/mL (2.6-18.5) Triglycerides Level 110 mg/dL (< 150) Cholesterol Level 111 mg/dL (< 200) LDL Cholesterol 60 mg/dL (< 100) HDL Cholesterol 32 mg/dL (40-59) Thyroid Stimulating Hormone (TSH) 1.37 uIU/mL (0.55-4.78) D-Dimer, Quantitative 0.52 mg/L FEU (0.0-0.49) Lactic Acid Level 1.4 mmol/L (0.4-2.0) Troponin I High Sensitivity < 3 ng/L (</=54) Test 06/14/24 21:06 06/14/24 20:45 Venous Blood pH 7.343 (7.320-7.430) Venous Blood pCO2 at Patient Temp 58.6 mmHg (38.0-54.0) Venous Blood pO2 at Patient Temp 65.5 mmHg (23.0-48.0) Venous Blood HCO3 31.1 mmol/L (22.0-29.0) Venous Blood Base Excess 3.7 mmol/L (-2.0-3.0) Blood Gas Liter Flow 6.00 Blood Gas Spontaneous Rate 18 Prothrombin Time 11.8 sec (9.3-11.8) Prothrombin Time INR 1.13 (0.9-1.15) Activated Partial Thromboplast Time 29.4 SEC (24.5-34.5) Total Bilirubin 0.9 mg/dL (0.2-1.0) Aspartate Amino Transferase (AST) 23 U/L (13-40) Alanine Aminotransferase (ALT) 25 U/L (7-40) Alkaline Phosphatase 46 U/L (46-116) B-Type Natriuretic Peptide 54.63 pg/mL (0-100) Total Protein 7.2 g/dL (5.7-8.2) Albumin 4.6 g/dL (3.2-4.8) Influenza Type A Antigen Negative (Negative) Influenza Type B Antigen Negative (Negative) SARS-CoV-2 Antigen (Rapid) Negative (NEGATIVE) Other Laboratory Tests 06/18/24 10:50 06/16/24 06:33 Brief Hx & Hospital Course: Final diagnoses: Acute hypoxic respiratory failure due to COPD exacerbation Chronic respiratory failure COPD exacerbation Pneumonia Hypoxia Hypertension BPH Iron deficiency COVID and flu negative 68-year-old male with a history of hypertension and BPH came for shortness of breaths and hypoxia. He was on high-flow oxygen. He was treated with IV steroids and oxygen and med neb treatments and IV antibiotics. He slowly improved however he remained hypoxic. He basically had acute hypoxic hypercapnic respiratory failure on chronic respiratory failure He needed home O2 after we did a blood gas he remained hypoxic however the patient did not want it He wanted to go home We explained to him that he needs home O2 and therefore we ordered it however he did not want to wait and he left the hospital against medical advice Condition at Discharge: Undetermined Final Diagnosis/Problems List Acute hypoxic respiratory failure Rule out heart failure Possible acute upper respiratory infection Hypertension BPH Iron deficiency COVID and flu negative Discharge Disposition: AMA SNF Discharge Will this Physician continue t: No Discharge Statement: "Patient was advised to return to the ER or call 911 if any headaches, dizziness, shortness of breath, chest pain, abdominal pain, bleeding, fevers, or worsening of medical condition. Patient was counseled about treatment plan, medications, possible side effects, patientverbalized understanding. All questions were answered to the best of my ability. This discharge took greater then 30 minutes in planning, reviewing documentation, counseling the patient, and discussing with other team members." ASSESSMENT ASSESSMENT Assessment Date of Service: Jun 18, 2024 Billing Provider: JACOB KWON MD Common Visit Codes: NOT BILLABLE JACOB KWON MD Jun 21, 2024 20:29
== END 2024-06-18 19:55 | disposition left against medical advice (07) | DRG 177 ==
LOC: ER 20:29 → OVERFLOW 06-15 00:53 → TELE-WESTW 06-15 21:42
PROVIDERS: ADMIT Internal Medicine Geriatric Medicine; ATTEND Internal Medicine Geriatric Medicine
PROC: 5A09357 Assistance with Respiratory Ventilation, Less than 24 Consecutive Hours, Continuous Positive Airway Pressure (ICD-10-PCS; principal; 2024-06-17)
DX: J15.69 Pneumonia due to other Gram-negative bacteria (principal); I50.33 Acute on chronic diastolic (congestive) heart failure; J96.22 Acute and chronic respiratory failure with hypercapnia; J96.21 Acute and chronic respiratory failure with hypoxia; J44.1 Chronic obstructive pulmonary disease with (acute) exacerbation; I20.0 Unstable angina; I11.0 Hypertensive heart disease with heart failure; J15.9 Unspecified bacterial pneumonia; Z20.822 Contact with and (suspected) exposure to COVID-19; Z53.29 Procedure and treatment not carried out because of patient's decision for other reasons; N40.0 Benign prostatic hyperplasia without lower urinary tract symptoms; K21.9 Gastro-esophageal reflux disease without esophagitis; E61.1 Iron deficiency; E66.9 Obesity, unspecified; E78.2 Mixed hyperlipidemia; R73.03 Prediabetes; Z99.81 Dependence on supplemental oxygen; Z79.899 Other long term (current) drug therapy; Z68.38 Body mass index [BMI] 38.0-38.9, adult
CPT/HCPCS: 36415; 36600; 71045; 71275; 78452; 80048; 80053; 80061; 80307; 81001; 82668; 82805; 83036; 83540; 83550; 83605; 83735; 83880; 84154; 84443; 84484; 85025; 85379; 85610; 85652; 85730; 86141; 87040; 87070; 87205; 87426; 87804; 93005; 93017; 93306; 93970; 94640; 94660; 96374; 99291; G0378; J2543